=== PATIENT | female | born 1950 | race Caucasian/White ===

== ENCOUNTER 2019-06-21 16:17 | Inpatient (IN) ==
[2019-06-21] MEDS ORDERED: dilTIAZem HCl 5 MG/ML 5 ML VIAL IV STA (17:00)
[2019-06-21] MEDS: dilTIAZem HCL 125 MG in DEXTROSE 5% 100 ML IV SCH (17:11)
--- NOTE | 2019-06-21 17:11 | XRay Report ---
XR chest 1V portable CLINICAL HISTORY: weakness dyspnea COMPARISON STUDY: No previous studies for comparison. FINDINGS: Moderate cardiomegaly. Prior median sternotomy and valve replacement. Components of congest josy heart failure. Small right effusion. IMPRESSION: Congestive heart failure ACT 112: Negative or not required by law. The above report was generated using voice recognition software. It may contain grammatical, syntax or spelling errors. Electronically signed by: Jemal Rojas M.D. 06/21/2019 5:10 PM
[2019-06-21 17:18] LABS: Basophils # (auto) 0.03 K/uL (0-0.2); Basophils % (auto) 0.2 %; Eosinophils # (auto) 0.09 K/uL (0-0.5); Eosinophils % (auto) 0.6 %; Hematocrit (blood only) 42.6 % (37-47); Hemoglobin 13.2 g/dL (12.0-16.0); Immature Granulocytes # (auto) 0.03 K/uL (0.00-0.02); Immature Granulocytes % (auto) 0.2 %; Lymphocytes # (auto) 2.29 K/uL (1.2-3.4); Lymphocytes % (auto) 15.8 %; Mean Corpuscular Hemoglobin 28.2 pg (25-34); Mean Platelet Volume 11.7 fL (7.4-10.4); Monocytes # (auto) 1.16 K/uL (0.11-0.59); Neutrophils # (auto) 10.87 K/uL (1.4-6.5); Neutrophils % (auto) 75.2 %; Platelet Count 354 K/uL (130-400); RDW Coefficient of Variation 15.5 % (11.5-14.5); RDW Standard Deviation 51.2 fL (36.4-46.3); Red Blood Count 4.68 M/uL (4.2-5.4); White Blood Count 14.47 K/uL (4.8-10.8)
[2019-06-21 17:28] LABS: Partial Thromboplastin Time 28.3 Seconds (21.0-31.0); Prothrombin Time 19.8 Seconds (9.0-12.0)
--- NOTE | 2019-06-21 17:39 | History & Physical Report ---
Date of Service June 21, 2019 Assessment & Plan (1) Atrial fibrillation with RVR: Atrial Fibrillation RVR: History of paroxysmal atrial fibrillation H/O Mechanical MVR CXR:Congestive heart failure TSH:2.5 Monitor electrolytes and replete as needed Increase metoprolol to 75 mg BID Continue Cardizem drip Also on Digoxin Continue Coumadin Monitor INR:2.0 Cardiology consulted Trend Cardiac enzymes Acute on chronic systolic and diastolic heart failure CXR:Congestive heart failure Hold PO diuretics Received IV Lasix 40 mg while in ED Start IV Lasix 20mg BID Update ECHO Daily weight, I/Os, fluid restriction Oxygen support PRN Monitor renal function/electrolytes Cardiology consulted Hypertensive Urgency H/O Hypertensive heart disease Continue metoprolol, lisinopril Also on digoxin Adjust medications as needed Leukocytosis No obvious Source of infection Hold Antibiotics for now Monitor Ongoing tobacco use disorder Counseled to quit smoking Refused nicotine patch CONSTANCE Depression Continue home medication Dyslipidemia on Statin H/O metallic mitral valve replacement Continue Coumadin INR 2.0 COPD No signs of exacerbation Continue home inhalers Duo nebs as needed DVT Px: on Heparin drip Code Status Full Code Disposition Admit in Tele History of Present Illness Chief Complaint: Shortness of Breath Primary Care Provider: Rosey Power MD Patient is a 69-year-old female with history of paroxysmal atrial fibrillation on chronic anticoagulation with Coumadin, ongoing tobacco use disorder, CONSTANCE, dyslipidemia, H/O metallic mitral valve replacement, depression, COPD, hypertensive heart disease, CHF and other problems presents with history of worsening shortness of breath, weight gain, bilateral lower extremity edema, and orthopnea. Patient states having worsening shortness of breath since last few weeks which is gradually progressed especially since last 2 days. Patient has been having difficulty sleeping secondary to severe orthopnea. She states having nausea, vomiting since 2 days and did not take her home medications. She was evaluated in cardiology clinic today and EKG suggestive of A. fib RVR with heart rate in 170s. Patient was sent to ED for further evaluation and management. She denies any history of chest pain, palpitations, abdominal pain, diarrhea, wheezing, cough. She gained about 5 to 8 pounds from baseline and noticed right lower extremity swelling greater than left lower extremity. She started on IV Cardizem drip while in ED. Also denies any history of dizziness, diaphoresis, hemoptysis, fever, chills, fall, headache, change in vision, dysuria, hematuria, sick contact, recent change in medications. Allergies Allergy/AdvReac Type Severity Reaction Status Date / Time bupropion Allergy Mild . Verified 06/21/19 18:13 tromethamine Allergy Unknown . Verified 06/21/19 18:13 ketorolac AdvReac Severe CHF Verified 06/21/19 18:13 Home Medications Home Medications Medication Instructions Recorded Confirmed Type albuterol sulfate 2 puff INHALATION Q4 PRN 06/21/19 06/21/19 History amoxicillin 2,000 mg PO UD 06/21/19 06/21/19 History aspirin 81 mg PO DAILY 06/21/19 06/21/19 History atorvastatin 40 mg PO DAILY 06/21/19 06/21/19 History cyanocobalamin (vitamin B-12) 500 mcg PO DAILY 06/21/19 06/21/19 History [Vitamin B-12] digoxin 125 mcg PO HS 06/21/19 06/21/19 History [id number]-[id number] 1 inh INHALATION DAILY 06/21/19 06/21/19 History [Trelegy Ellipta] furosemide 40 mg PO BID 06/21/19 06/21/19 History ipratropium-albuterol 3 ml INHALATION Q6H PRN 06/21/19 06/21/19 History lisinopril 5 mg PO DAILY 06/21/19 06/21/19 History metoprolol succinate 50 mg PO BID 06/21/19 06/21/19 History sertraline 25 mg PO DAILY 06/21/19 06/21/19 History warfarin 2.5 mg PO Q7D 06/21/19 06/21/19 History warfarin 5 mg PO [id number] 06/21/19 06/21/19 History Past Med/Surg History Medical History A-fib CHF (congestive heart failure) (Acute) CONSTANCE (generalized anxiety disorder) Surgical History H/O mitral valve replacement Family History Father Heart disease Brother Heart disease Social History Feels Safe at Home: Yes Smoking Status: Current every day smoker Review of Systems Review of Systems: All systems reviewed & are unremarkable except as noted in HPI & below Physical Exam Physical Exam: Physical Exam: Vitals signs as noted above General Appearance:Moderately built and nourished, no apparent distress Head: normocephalic, Atraumatic Eyes: normal inspection, EOMI Neck: supple, Trachea midline Respiratory/Chest: Normal breath sounds, + Basal Rales, No accessory muscle use Cardiovascular: Irregularly irregular, tachycardia, + murmur Abdomen/GI:Soft, Non tender, Bowel sounds present Extremities/Musculoskelatal:normal inspection, B/L LE edema Neurologic/Psych:AAOX3, grossly no focal neurological deficits Skin: normal color, warm Results & Data Vital Signs (Past 12 Hours) Vital Signs Temp Pulse Pulse Resp BP BP Pulse Ox 06/21/19 17:26 145 H 43 H 103/85 97 06/21/19 17:22 139 H 34 H 97 06/21/19 17:21 147 H 28 H 144/110 H 97 06/21/19 17:20 144 H 31 H 97 06/21/19 17:18 151 H 21 164/112 H 96 06/21/19 17:14 143 H 31 H 156/116 H 97 06/21/19 17:13 128 H 32 H 156/116 H 97 06/21/19 17:12 141 H 25 H 142/88 H 96 06/21/19 17:10 130 H 24 94 06/21/19 17:07 185 H 26 H 94 06/21/19 17:06 169 H 26 H 94 06/21/19 16:44 36.7 C 171 H 30 H 157/123 H 94 Laboratory Results Short CBC 06/21/19 Range/Units 16:57 WBC 14.47 H (4.8-10.8) K/uL Hgb 13.2 (12.0-16.0) g/dL Hct 42.6 (37-47) % Plt Count 354 (130-400) K/uL BMP 06/21/19 16:57 Sodium 139 Potassium 3.6 Chloride 105 Carbon Dioxide 29 BUN 15 Creatinine 1.09 Glucose 138 H Calcium 8.7 Cardiac Enzymes 06/21/19 Range/Units 16:57 Troponin I 0.021 (0-0.045) ng/ml Liver Function 06/21/19 Range/Units 16:57 Total Bilirubin 1.1 H (0.2-1) mg/dl AST 40 H (15-37) U/L ALT 66 (12-78) U/L Alkaline Phosphatase 147 H (45-117) U/L Albumin 3.3 L (3.4-5.0) gm/dl Urine 06/21/19 Range/Units 18:30 Urine Color Yellow Urine Appearance Clear (Clear) Urine pH 6.0 (4.5-7.5) Ur Specific [place] 1.011 (1.000-1.030) Urine Protein 2+ H (Negative) Urine Glucose (UA) Negative (Negative) Diagnostic Findings CXR: Congestive heart failure Medications Administered Home Medications Medication Instructions Recorded Confirmed albuterol sulfate 2 puff INHALATION Q4 PRN 06/21/19 06/21/19 amoxicillin 2,000 mg PO UD 06/21/19 06/21/19 aspirin 81 mg PO DAILY 06/21/19 06/21/19 atorvastatin 40 mg PO DAILY 06/21/19 06/21/19 cyanocobalamin (vitamin B-12) 500 mcg PO DAILY 06/21/19 06/21/19 [Vitamin B-12] digoxin 125 mcg PO HS 06/21/19 06/21/19 [id number] 1 inh INHALATION DAILY 06/21/19 06/21/19 [Trelegy Ellipta] furosemide 40 mg PO BID 06/21/19 06/21/19 ipratropium-albuterol 3 ml INHALATION Q6H PRN 06/21/19 06/21/19 lisinopril 5 mg PO DAILY 06/21/19 06/21/19 metoprolol succinate 50 mg PO BID 06/21/19 06/21/19 sertraline 25 mg PO DAILY 06/21/19 06/21/19 warfarin 2.5 mg PO Q7D 06/21/19 06/21/19 warfarin 5 mg PO [id number] 06/21/19 06/21/19
[2019-06-21 17:41] LABS: Alanine Aminotransferase 66 U/L (12-78); Albumin Level 3.3 gm/dl (3.4-5.0); Aspartate Aminotransferase 40 U/L (15-37); BUN Creatinine Ratio 13.8 (10-20); Blood Urea Nitrogen 15 mg/dl (7-18); Calcium 8.7 mg/dl (8.5-10.1); Carbon Dioxide 29 mmol/L (21-32); Chloride 105 mmol/L (98-107); Est GFR (African American) 60.4; Est GFR (Non-African American) 52.1; Glucose 138 mg/dl (70-99); Potassium 3.6 mmol/L (3.5-5.1); Sodium 139 mmol/L (136-145)
[2019-06-21 17:52] LABS: Albumin Globulin Ratio 0.9 (0.9-2); Alkaline Phosphatase 147 U/L (45-117); Bilirubin,Total 1.1 mg/dl (0.2-1); Globulin 3.7 gm/dl (2.5-4.0); Troponin I 0.021 ng/ml (0-0.045)
[2019-06-21] MEDS ORDERED: FUROSEMIDE 40 MG/4 ML VIAL IV STA (18:02)
[2019-06-21] MEDS ORDERED: Heparin IV Standard *NO* Bolus IV ONE (18:36)
[2019-06-21 18:43] LABS: Appearance Urine Clear (Clear); Bacteria Urine Automated Negative (Negative); Bilirubin Urine Negative (Negative); Blood Urine Negative (Negative); Color Urine Yellow; Epithelial Cell Urine Auto 20-30 /lpf (0-5); Glucose Urine UA Negative (Negative); Ketones Urine Negative (Negative); Leukocyte Esterase Urine Negative (Negative); Nitrite Urine Negative (Negative); Protein Urine 2+ (Negative); RBC Urine Automated 0-4 /hpf (0-4); Specific Gravity Urine 1.011 (1.000-1.030); Urobilinogen Urine Negative (Negative)
[2019-06-21] MEDS ORDERED: POTASSIUM CHLORIDE 10 MEQ TABCR PO STA (18:44)
[2019-06-21] MEDS ORDERED: HEPARIN SODIUM/DEXTROSE 25,000 UNITS/500 ML BAG IV SCH (18:45)
[2019-06-21] MEDS ORDERED: HEPARIN 25000 UNIT/500 ML D5W IV ONE (18:57)
[2019-06-21] MEDS ORDERED: ACETAMINOPHEN 325 MG TAB PO PRN (21:59)
[2019-06-21] MEDS ORDERED: NITROGLYCERIN SL 0.4 MG/TAB TAB SL PRN (21:59)
[2019-06-21] MEDS ORDERED: POLYETHYLENE (MIRALAX) 17 GM PACK PO PRN (21:59)
[2019-06-21] MEDS ORDERED: ONDANSETRON INJ 2 MG/ML 2 ML VIAL IV PRN (21:59)
[2019-06-21] MEDS ORDERED: LEVALBUTEROL HCL 0.63 MG/3 ML NEB NEB PRN (22:18)
[2019-06-21] MEDS ORDERED: ALBUTEROL 0.5% NEB SOLN 2.5 MG/0.5 ML VIAL NEB PRN (22:19)
--- NOTE | 2019-06-21 22:21 | Emergency Department Note ---
Entered by Mile Turcios acting as a scribe for Isaac Guzman DO History of Present Illness General Chief complaint: Arrhythmia/Palpitations Stated complaint: AFIB Time Seen by Provider: 06/21/19 16:46 Source: patient Limitations: no limitations History of Present Illness Onset (ago): week(s) (a few) Location: chest Pain Consistency: + constant and + other (worsening ) Quality: + constant and + other (SOB) Associated symptoms: no chest pain and no cough The patient is a 69 year old female who presents to the Emergency Room with complaints of constant SOB that began a few weeks ago. She reports that the shortness of breath has worsened over the past 3 days. The patient reports that she was at Dr. Steinberg's office [employer], and she was referred here by Dr. Steinberg. She complains of nausea/vomiting over the past five days, noting that she has been vomiting up her medications. The patient complains of swelling in the lower extremities that began about the same time as the shortness of breath. She denies any chest pain, cough, and fevers. The patient reports that she has a history of A-fib, noting that she takes Coumadin. Home Medications Home Medications Medication Instructions Recorded Confirmed Type albuterol sulfate 2 puff INHALATION Q4 PRN 06/21/19 06/21/19 History amoxicillin 2,000 mg PO UD 06/21/19 06/21/19 History aspirin 81 mg PO DAILY 06/21/19 06/21/19 History atorvastatin 40 mg PO DAILY 06/21/19 06/21/19 History cyanocobalamin (vitamin B-12) 500 mcg PO DAILY 06/21/19 06/21/19 History [Vitamin B-12] digoxin 125 mcg PO HS 06/21/19 06/21/19 History xxhzaagzkws-mistkczzq-ybsqqlpa 1 inh INHALATION DAILY 06/21/19 06/21/19 History [Trelegy Ellipta] furosemide 40 mg PO BID 06/21/19 06/21/19 History ipratropium-albuterol 3 ml INHALATION Q6H PRN 06/21/19 06/21/19 History lisinopril 5 mg PO DAILY 06/21/19 06/21/19 History metoprolol succinate 50 mg PO BID 06/21/19 06/21/19 History sertraline 25 mg PO DAILY 06/21/19 06/21/19 History warfarin 2.5 mg PO WK 06/21/19 06/21/19 History warfarin 5 mg PO [id number] 06/21/19 06/21/19 History Allergies Allergy/AdvReac Type Severity Reaction Status Date / Time bupropion Allergy Mild . Verified 06/21/19 18:13 tromethamine Allergy Unknown . Verified 06/21/19 18:13 ketorolac AdvReac Severe CHF Verified 06/21/19 18:13 Past Med/Surg History Medical History A-fib CHF (congestive heart failure) (Acute) CONSTANCE (generalized anxiety disorder) Surgical History H/O mitral valve replacement Family History Father Heart disease Brother Heart disease Social History Preferred Language: Algerian Communication Ability: Effective Beliefs That Will Affect Care: None Current Living Situation: Alone Other Information That Helps Us Care for You: No Feels Safe at Home: Yes Safety Concerns: Feels Safe At This Time Smoking Status: Former smoker Hx Alcohol Use: No Hx Substance Use: No Review of Systems See HPI for pertinent positives & negatives. and A total of 10 systems reviewed and were otherwise negative Physical Exam Vital Signs Vital Signs - 24 hr 06/21/19 16:44 06/21/19 17:06 06/21/19 17:07 Temperature 36.7 C Temperature Source Oral Pulse Rate 171 H 169 H 185 H Pulse Rate [Left] Pulse Rate from SpO2 Sensor 145 H Respiratory Rate 30 H 26 H 26 H Respiratory Effort / Characteristics Blood Pressure 157/123 H Blood Pressure [Right Arm] Blood Pressure Mean 134 Blood Pressure Mean [Right Arm] Blood Pressure Position Sitting Blood Pressure Position [Right Arm] Pulse Oximetry 94 94 94 Oxygen Delivery Method Room Air Room Air Oxygen Flow Rate Sepsis Recent Fever Within 48 Hours No Sepsis New/Unexplained Change in Mental Status No Sepsis Action Taken by Nursing No Action Required 06/21/19 17:10 06/21/19 17:12 06/21/19 17:13 Temperature Temperature Source Pulse Rate 130 H 141 H 128 H Pulse Rate [Left] Pulse Rate from SpO2 Sensor 124 H 152 H 130 H Respiratory Rate 24 25 H 32 H Respiratory Effort / Characteristics Blood Pressure 142/88 H 156/116 H Blood Pressure [Right Arm] Blood Pressure Mean 97 123 Blood Pressure Mean [Right Arm] Blood Pressure Position Blood Pressure Position [Right Arm] Pulse Oximetry 94 96 97 Oxygen Delivery Method Oxygen Flow Rate Sepsis Recent Fever Within 48 Hours Sepsis New/Unexplained Change in Mental Status Sepsis Action Taken by Nursing 06/21/19 17:14 06/21/19 17:18 06/21/19 17:20 Temperature Temperature Source Pulse Rate 151 H 144 H Pulse Rate [Left] 143 H Pulse Rate from SpO2 Sensor 135 H 130 H Respiratory Rate 31 H 21 31 H Respiratory Effort / Characteristics Spontaneous Blood Pressure 164/112 H Blood Pressure [Right Arm] 156/116 H Blood Pressure Mean 122 Blood Pressure Mean [Right Arm] 129 Blood Pressure Position Blood Pressure Position [Right Arm] Lying Pulse Oximetry 97 96 97 Oxygen Delivery Method Nasal Cannula Oxygen Flow Rate 2 Sepsis Recent Fever Within 48 Hours Sepsis New/Unexplained Change in Mental Status Sepsis Action Taken by Nursing 06/21/19 17:21 06/21/19 17:22 06/21/19 17:26 Temperature Temperature Source Pulse Rate 147 H 139 H 145 H Pulse Rate [Left] Pulse Rate from SpO2 Sensor 128 H 146 H 149 H Respiratory Rate 28 H 34 H 43 H Respiratory Effort / Characteristics Blood Pressure 144/110 H Blood Pressure [Right Arm] Blood Pressure Mean 115 Blood Pressure Mean [Right Arm] Blood Pressure Position Blood Pressure Position [Right Arm] Pulse Oximetry 97 97 97 Oxygen Delivery Method Oxygen Flow Rate Sepsis Recent Fever Within 48 Hours Sepsis New/Unexplained Change in Mental Status Sepsis Action Taken by Nursing 06/21/19 17:27 06/21/19 17:31 06/21/19 17:35 Temperature Temperature Source Pulse Rate 141 H 135 H 130 H Pulse Rate [Left] Pulse Rate from SpO2 Sensor 128 H 138 H 148 H Respiratory Rate 30 H 20 32 H Respiratory Effort / Characteristics Blood Pressure 161/108 H 173/117 H Blood Pressure [Right Arm] Blood Pressure Mean 119 126 Blood Pressure Mean [Right Arm] Blood Pressure Position Blood Pressure Position [Right Arm] Pulse Oximetry 98 98 98 Oxygen Delivery Method Oxygen Flow Rate Sepsis Recent Fever Within 48 Hours Sepsis New/Unexplained Change in Mental Status Sepsis Action Taken by Nursing 06/21/19 17:40 06/21/19 17:41 06/21/19 17:45 Temperature Temperature Source Pulse Rate 135 H 138 H 147 H Pulse Rate [Left] Pulse Rate from SpO2 Sensor 139 H 137 H 140 H Respiratory Rate 32 H 27 H 23 Respiratory Effort / Characteristics Blood Pressure 161/114 H 161/115 H Blood Pressure [Right Arm] Blood Pressure Mean 120 137 Blood Pressure Mean [Right Arm] Blood Pressure Position Blood Pressure Position [Right Arm] Pulse Oximetry 98 97 97 Oxygen Delivery Method Oxygen Flow Rate Sepsis Recent Fever Within 48 Hours Sepsis New/Unexplained Change in Mental Status Sepsis Action Taken by Nursing 06/21/19 17:50 06/21/19 17:56 06/21/19 18:00 Temperature Temperature Source Pulse Rate 149 H 129 H 141 H Pulse Rate [Left] Pulse Rate from SpO2 Sensor 141 H 131 H 144 H Respiratory Rate 31 H 20 26 H Respiratory Effort / Characteristics Blood Pressure 140/117 H 151/129 H 162/111 H Blood Pressure [Right Arm] Blood Pressure Mean 125 135 137 Blood Pressure Mean [Right Arm] Blood Pressure Position Blood Pressure Position [Right Arm] Pulse Oximetry 97 97 96 Oxygen Delivery Method Oxygen Flow Rate Sepsis Recent Fever Within 48 Hours Sepsis New/Unexplained Change in Mental Status Sepsis Action Taken by Nursing 06/21/19 18:01 06/21/19 18:05 06/21/19 18:10 Temperature Temperature Source Pulse Rate 140 H 127 H 141 H Pulse Rate [Left] Pulse Rate from SpO2 Sensor 131 H 138 H 151 H Respiratory Rate 24 22 22 Respiratory Effort / Characteristics Blood Pressure 178/120 H 170/129 H Blood Pressure [Right Arm] Blood Pressure Mean 129 137 Blood Pressure Mean [Right Arm] Blood Pressure Position Blood Pressure Position [Right Arm] Pulse Oximetry 97 96 97 Oxygen Delivery Method Oxygen Flow Rate Sepsis Recent Fever Within 48 Hours Sepsis New/Unexplained Change in Mental Status Sepsis Action Taken by Nursing 06/21/19 18:11 06/21/19 18:15 06/21/19 18:20 Temperature Temperature Source Pulse Rate 129 H 132 H 135 H Pulse Rate [Left] Pulse Rate from SpO2 Sensor 135 H 142 H 123 H Respiratory Rate 25 H 36 H 25 H Respiratory Effort / Characteristics Blood Pressure 156/105 H 148/100 H Blood Pressure [Right Arm] Blood Pressure Mean 122 115 Blood Pressure Mean [Right Arm] Blood Pressure Position Blood Pressure Position [Right Arm] Pulse Oximetry 94 97 97 Oxygen Delivery Method Oxygen Flow Rate Sepsis Recent Fever Within 48 Hours Sepsis New/Unexplained Change in Mental Status Sepsis Action Taken by Nursing 06/21/19 18:26 06/21/19 18:31 06/21/19 18:32 Temperature Temperature Source Pulse Rate 147 H 167 H 150 H Pulse Rate [Left] Pulse Rate from SpO2 Sensor 147 H 144 H Respiratory Rate 31 H 36 H 20 Respiratory Effort / Characteristics Blood Pressure 152/129 H 176/111 H Blood Pressure [Right Arm] Blood Pressure Mean 137 134 Blood Pressure Mean [Right Arm] Blood Pressure Position Blood Pressure Position [Right Arm] Pulse Oximetry 97 97 Oxygen Delivery Method Oxygen Flow Rate Sepsis Recent Fever Within 48 Hours Sepsis New/Unexplained Change in Mental Status Sepsis Action Taken by Nursing 06/21/19 18:33 06/21/19 18:35 06/21/19 18:40 Temperature Temperature Source Pulse Rate 152 H 136 H 153 H Pulse Rate [Left] Pulse Rate from SpO2 Sensor 143 H 135 H 147 H Respiratory Rate 41 H 24 33 H Respiratory Effort / Characteristics Blood Pressure 165/105 H 159/118 H Blood Pressure [Right Arm] Blood Pressure Mean 110 131 Blood Pressure Mean [Right Arm] Blood Pressure Position Blood Pressure Position [Right Arm] Pulse Oximetry 97 97 96 Oxygen Delivery Method Oxygen Flow Rate Sepsis Recent Fever Within 48 Hours Sepsis New/Unexplained Change in Mental Status Sepsis Action Taken by Nursing GENERAL: Patient is awake, alert, and in no acute distress.Patient is resting comfortably and showing no signs of anxiety EYES: The conjunctivae are clear. The pupils are round and reactive. EARS, NOSE, MOUTH AND THROAT: The nose is without any evidence of any deformity. Mucous membranes are moist.Tongue is midline NECK: The neck is nontender and supple. RESPIRATORY: Normal respiratory effort is noted. There is no evidence of wheezing rhonchi or rales to auscultation. CARDIOVASCULAR: Tachycardic rate noted to auscultation. No definite murmur, metallic click noted to auscultation. GASTROINTESTINAL: Mildly distended, soft, no tenderness throughout. MUSCULOSKELETAL/EXTREMITIES: There is no evidence of gross deformity. Full range of motion is noted in the hips and shoulders. SKIN: There is no obvious evidence of any rash. There are no petechiae, pallor or cyanosis noted. Pedal edema bilaterally. Skin is warm and dry. NEUROLOGIC: Patient is awake alert and oriented x3. Course Course 1648: The patient was evaluated in room A01. A complete history and physical exam was performed. 1728: Carlos was paged. 1736: I spoke with Dr. Man, [facility] hospitalist, about the patient's case. He will further evaluate the patient. Administered Medications Diltiazem HCl 125 mg/ Dextrose 125 mls @ 5 mls/hr IV .Q24H LESLIE; Protocol Stop: 07/21/19 16:59 Last Titration: 06/21/19 17:41 Dose: 15 mg/hr, 15 mls/hr Documented by: [id number] Cosigned by: [id number] Titration: 06/21/19 17:21 Dose: 10 mg/hr, 10 mls/hr Documented by: [id number] Cosigned by: [id number] Admin: 06/21/19 17:11 Dose: 5 mg/hr, 5 mls/hr Documented by: [id number] Cosigned by: [id number] Discontinued Medications Diltiazem HCl (Cardizem) 10 mg IV NOW STA Stop: 06/21/19 17:01 Last Admin: 06/21/19 17:07 Dose: 10 mg Documented by: [id number] Cosigned by: [id number] Furosemide (Lasix) 40 mg IV NOW STA Stop: 06/21/19 18:03 Last Admin: 06/21/19 18:13 Dose: 40 mg Documented by: [id number] Heparin Sodium/Dextrose (Heparin Sodium/Dextrose) Confirm Administered Dose 25,000 units IV .STK-MED ONE Stop: 06/21/19 18:58 Last Admin: 06/21/19 19:03 Dose: 25 ml Documented by: [id number] Cosigned by: [id number] Potassium Chloride (Klor-Con M10) 40 meq PO NOW STA Stop: 06/21/19 18:45 Last Admin: 06/21/19 19:14 Dose: 40 meq Documented by: [id number] Medical Decision Making Differential Diagnosis Differential diagnosis includes etiologies such as premature contractions, electrolyte abnormality, cardiac dysrhythmia, thyroid dysfunction, pulmonary embolism, infection, gastrointestinal, as well as others were entertained. Medical Records Attestation: I reviewed the patient's medical records. Home Medications Current Medication List: was personally reviewed by me Laboratory Data Attestation: I reviewed the patient's lab results. Result diagrams: 06/21/19 16:57 06/21/19 16:57 Lab Results 06/21/19 06/21/19 06/21/19 Range/Units 16:57 16:57 16:57 WBC 14.47 H (4.8-10.8) K/uL RBC 4.68 (4.2-5.4) M/uL Hgb 13.2 (12.0-16.0) g/dL Hct 42.6 (37-47) % MCV 91.0 (80-100) fL MCH 28.2 (25-34) pg MCHC 31.0 L (32-36) g/dL RDW Std Deviation 51.2 H (36.4-46.3) fL RDW Coeff of Becca 15.5 H (11.5-14.5) % Plt Count 354 (130-400) K/uL MPV 11.7 H (7.4-10.4) fL Immature Gran % (Auto) 0.2 % Neut % (Auto) 75.2 % Lymph % (Auto) 15.8 % [place] % (Auto) 8.0 % Eos % (Auto) 0.6 % Baso % (Auto) 0.2 % Immature Gran # (Auto) 0.03 H (0.00-0.02) K/uL Neut # (Auto) 10.87 H (1.4-6.5) K/uL Lymph # (Auto) 2.29 (1.2-3.4) K/uL [place] # (Auto) 1.16 H (0.11-0.59) K/uL Eos # (Auto) 0.09 (0-0.5) K/uL Baso # (Auto) 0.03 (0-0.2) K/uL PT 19.8 H (9.0-12.0) Seconds INR 2.0 H (0.9-1.1) APTT 28.3 (21.0-31.0) Seconds PTT Ratio 1.0 Sodium 139 (136-145) mmol/L Potassium 3.6 (3.5-5.1) mmol/L Chloride 105 (98-107) mmol/L Carbon Dioxide 29 (21-32) mmol/L Anion Gap 5.0 (3-11) BUN 15 (7-18) mg/dl Creatinine 1.09 (0.6-1.2) mg/dl Est Cr Clr Drug Dosing Not Reportable Est GFR ( Amer) 60.4 Est GFR (Non-Af Amer) 52.1 BUN/Creatinine Ratio 13.8 (10-20) Glucose 138 H (70-99) mg/dl Calcium 8.7 (8.5-10.1) mg/dl Magnesium 2.0 (1.8-2.4) mg/dl Total Bilirubin 1.1 H (0.2-1) mg/dl AST 40 H (15-37) U/L ALT 66 (12-78) U/L Alkaline Phosphatase 147 H (45-117) U/L Troponin I 0.021 (0-0.045) ng/ml Total Protein 7.0 (6.4-8.2) gm/dl Albumin 3.3 L (3.4-5.0) gm/dl Globulin 3.7 (2.5-4.0) gm/dl Albumin/Globulin Ratio 0.9 (0.9-2) TSH 2.540 (0.300-4.500) uIu/ml Urine Color Urine Appearance (Clear) Urine pH (4.5-7.5) Ur Specific [place] (1.000-1.030) Urine Protein (Negative) Urine Glucose (UA) (Negative) Urine Ketones (Negative) Urine Blood (Negative) Urine Nitrite (Negative) Urine Bilirubin (Negative) Urine Urobilinogen (Negative) Ur Leukocyte Esterase (Negative) Urine WBC (Auto) (0-5) /hpf Urine RBC (Auto) (0-4) /hpf U Hyaline Cast (Auto) (0-5) /lpf U Epithel Cells (Auto) (0-5) /lpf Urine Bacteria (Auto) (Negative) Digoxin (0.8-2.0) ng/ml 06/21/19 06/21/19 Range/Units 16:57 18:30 WBC (4.8-10.8) K/uL RBC (4.2-5.4) M/uL Hgb (12.0-16.0) g/dL Hct (37-47) % MCV (80-100) fL MCH (25-34) pg MCHC (32-36) g/dL RDW Std Deviation (36.4-46.3) fL RDW Coeff of Becca (11.5-14.5) % Plt Count (130-400) K/uL MPV (7.4-10.4) fL Immature Gran % (Auto) % Neut % (Auto) % Lymph % (Auto) % [place] % (Auto) % Eos % (Auto) % Baso % (Auto) % Immature Gran # (Auto) (0.00-0.02) K/uL Neut # (Auto) (1.4-6.5) K/uL Lymph # (Auto) (1.2-3.4) K/uL [place] # (Auto) (0.11-0.59) K/uL Eos # (Auto) (0-0.5) K/uL Baso # (Auto) (0-0.2) K/uL PT (9.0-12.0) Seconds INR (0.9-1.1) APTT (21.0-31.0) Seconds PTT Ratio Sodium (136-145) mmol/L Potassium (3.5-5.1) mmol/L Chloride (98-107) mmol/L Carbon Dioxide (21-32) mmol/L Anion Gap (3-11) BUN (7-18) mg/dl Creatinine (0.6-1.2) mg/dl Est Cr Clr Drug Dosing Est GFR ( Amer) Est GFR (Non-Af Amer) BUN/Creatinine Ratio (10-20) Glucose (70-99) mg/dl Calcium (8.5-10.1) mg/dl Magnesium (1.8-2.4) mg/dl Total Bilirubin (0.2-1) mg/dl AST (15-37) U/L ALT (12-78) U/L Alkaline Phosphatase (45-117) U/L Troponin I (0-0.045) ng/ml Total Protein (6.4-8.2) gm/dl Albumin (3.4-5.0) gm/dl Globulin (2.5-4.0) gm/dl Albumin/Globulin Ratio (0.9-2) TSH (0.300-4.500) uIu/ml Urine Color Yellow Urine Appearance Clear (Clear) Urine pH 6.0 (4.5-7.5) Ur Specific [place] 1.011 (1.000-1.030) Urine Protein 2+ H (Negative) Urine Glucose (UA) Negative (Negative) Urine Ketones Negative (Negative) Urine Blood Negative (Negative) Urine Nitrite Negative (Negative) Urine Bilirubin Negative (Negative) Urine Urobilinogen Negative (Negative) Ur Leukocyte Esterase Negative (Negative) Urine WBC (Auto) 1-5 (0-5) /hpf Urine RBC (Auto) 0-4 (0-4) /hpf U Hyaline Cast (Auto) 1-5 (0-5) /lpf U Epithel Cells (Auto) 20-30 H (0-5) /lpf Urine Bacteria (Auto) Negative (Negative) Digoxin 0.1 L (0.8-2.0) ng/ml Imaging Data Radiologist's Impression: Radiology results as stated below per my review and the radiologist's interpretation: XR chest 1V portable CLINICAL HISTORY: weakness dyspnea COMPARISON STUDY: No previous studies for comparison. FINDINGS: Moderate cardiomegaly. Prior median sternotomy and valve replacement. Components of congestive heart failure. Small right effusion. IMPRESSION: Congestive heart failure ACT 112: Negative or not required by law. The above report was generated using voice recognition software. It may contain grammatical, syntax or spelling errors. Electronically signed by: Jemal Rojas M.D. 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 The patient was found to be in rapid atrial fibrillation. It sounds though she has been having symptoms for a few days. She also has a history and physical exam appear to be consistent with volume overload and CHF. Chest x-ray revealed signs of pulmonary edema. She was sarah ated with supplemental oxygen IV Lasix. I did feel that many of her symptoms were likely secondary to her rapid ventricular response so she was treated with IV Cardizem. She was placed on a Cardizem drip. She was reevaluated multiple times. I discussed the patient's laboratory and radiographic studies with her. I also discussed her case with the on-call [facility] hospitalist group. They have agreed to evaluate the patient in the emergency department for further management and disposition. The patient's heart rate continued to improve. Her overall shortness of breath also improved. Impression & Plan Atrial fibrillation with RVR, CHF (congestive heart failure), SOB (shortness of breath) Discharge Plan Visit Data *Final* Discharge Date/Time: 06/21/19 21:28 Chief Complaint: Arrhythmia/Palpitations Stated Complaint: AFIB ED Provider: Isaac Guzman Discharge Problem: Atrial fibrillation with RVR, CHF (congestive heart failure), SOB (shortness of breath) Patient Disposition: Admitted As Inpatient Discharge Instructions Interventions: ED Discharge Assessment Last Done: 06/21/19 21:28 Discharge Problem: CHF (congestive heart failure) Qualifiers: Heart failure type: unspecified Heart failure chronicity: unspecified Qualified Code(s): I50.9 - Heart failure, unspecified The scribe's documentation has been prepared under my direction and personally reviewed by me in its entirety. I confirm that the note above accurately reflects all work, treatment, procedures, and medical decision making performed by me.
[2019-06-21] MEDS ORDERED: IPRATROPIUM BROMIDE NEB SOLN 0.02% 2.5 ML VIAL INH PRN (22:23)
[2019-06-21] MEDS: METOPROLOL TARTRATE 25 MG TAB PO SCH (22:40)
[2019-06-21] MEDS: lisinopriL 5 MG TAB PO SCH (22:40)
[2019-06-21] MEDS: DIGOXIN 0.125 MG TAB PO SCH (22:40)
[2019-06-22] MEDS: dilTIAZem HCL 125 MG in DEXTROSE 5% 100 ML IV SCH ×2 (02:23→09:18)
--- NOTE | 2019-06-22 06:40 | Ultrasound Report ---
BILATERAL LOWER EXTREMITY VENOUS DOPPLER CLINICAL HISTORY: Bilateral lower extremity swelling. COMPARISON STUDY: No previous studies for comparison. TECHNIQUE: Sonography of the deep venous system of the bilateral lower extremities was performed. Co mpression and augmentation were evaluated. FINDINGS: The bilateral common femoral, superficial femoral and popliteal veins were compressible. A ugmentation was normal. Flow was shown within the deep calf vessels. IMPRESSION: No evidence of deep venous thrombus within the bilateral lower extremities. ACT 112: Negative or not required by law. Electronically signed by: Ciro Marmolejo M.D. 06/22/2019 6:38 AM
[2019-06-22 07:16] LABS: Basophils # (auto) 0.02 K/uL (0-0.2); Basophils % (auto) 0.2 %; Eosinophils # (auto) 0.14 K/uL (0-0.5); Eosinophils % (auto) 1.1 %; Hematocrit (blood only) 39.7 % (37-47); Hemoglobin 12.1 g/dL (12.0-16.0); Immature Granulocytes # (auto) 0.04 K/uL (0.00-0.02); Immature Granulocytes % (auto) 0.3 %; Lymphocytes # (auto) 2.01 K/uL (1.2-3.4); Lymphocytes % (auto) 16.4 %; Mean Corpuscular Hemoglobin 28.1 pg (25-34); Mean Corpuscular Hgb Conc 30.5 g/dL (32-36); Mean Corpuscular Volume 92.1 fL (80-100); Mean Platelet Volume 11.3 fL (7.4-10.4); Monocytes % (auto) 9.8 %; Neutrophils # (auto) 8.85 K/uL (1.4-6.5); Neutrophils % (auto) 72.2 %; Platelet Count 305 K/uL (130-400); RDW Coefficient of Variation 15.3 % (11.5-14.5); RDW Standard Deviation 51.9 fL (36.4-46.3); Red Blood Count 4.31 M/uL (4.2-5.4); White Blood Count 12.26 K/uL (4.8-10.8)
[2019-06-22 07:24] LABS: INR 1.8 (0.9-1.1); Prothrombin Time 17.9 Seconds (9.0-12.0)
[2019-06-22 07:42] LABS: BUN Creatinine Ratio 15.6 (10-20); Calcium 8.9 mg/dl (8.5-10.1); Creatinine Clr Calc Pharmacy 52.3 ml/min; Est GFR (African American) 59.7; Est GFR (Non-African American) 51.5; Magnesium 1.9 mg/dl (1.8-2.4); Potassium 3.8 mmol/L (3.5-5.1)
[2019-06-22 07:45] LABS: Albumin Globulin Ratio 0.9 (0.9-2); Bilirubin,Total 1.1 mg/dl (0.2-1); Globulin 3.3 gm/dl (2.5-4.0); Total Protein 6.3 gm/dl (6.4-8.2)
[2019-06-22] MEDS ORDERED: PERFLUTREN LIPID MICROSPHERE (DEFINITY) IV ONE (08:37)
[2019-06-22] MEDS: METOPROLOL TARTRATE 25 MG TAB PO SCH (08:44)
[2019-06-22] MEDS: SERTRALINE HCL 50 MG TABLET PO SCH (08:45)
[2019-06-22] MEDS: lisinopriL 5 MG TAB PO SCH (08:45)
[2019-06-22] MEDS: ASPIRIN 81 MG ECTAB PO SCH (08:46)
[2019-06-22] MEDS ORDERED: FUROSEMIDE 20 MG in SYRINGE 0 ML IV SCH (09:00)
[2019-06-22] MEDS ORDERED: FUROSEMIDE 40 MG/4 ML VIAL IV SCH (09:00)
[2019-06-22] MEDS: ATORVASTATIN 40 MG TAB PO SCH (09:56)
--- NOTE | 2019-06-22 10:06 | Electrocardiogram Report ---
Test Reason : Blood Pressure : / mmHG Vent. Rate : 176 BPM Atrial Rate : 187 BPM P-R Int : 000 ms QRS Dur : 082 ms QT Int : 254 ms P-R-T Axes : 000 074 065 degrees QTc Int : 434 ms Atrial fibrillation with rapid ventricular response Nonspecific ST and T wave abnormality Abnormal ECG No previous ECGs available Confirmed by Isaac Paul ([id number]) on 06/22/2019 10:05:31 AM Referred By: REFERRED SELF Confirmed By:Isaac Paul
--- NOTE | 2019-06-22 10:14 | Electrocardiogram Report ---
Test Reason : Blood Pressure : / mmHG Vent. Rate : 082 BPM Atrial Rate : 000 BPM P-R Int : 000 ms QRS Dur : 090 ms QT Int : 456 ms P-R-T Axes : 000 006 229 degrees QTc Int : 532 ms Atrial fibrillation Minimal voltage criteria for LVH, may be normal variant ( Josemanuel product ) Nonspecific T wave abnormality Abnormal ECG When compared with ECG of 21-JUN-2019 16:43, (unconfirmed) Vent. rate has decreased BY 94 BPM Questionable change in QRS axis Nonspecific T wave abnormality now evident in Anterior leads Confirmed by Isaac Paul ([id number]) on 06/22/2019 10:13:48 AM Referred By: REFERRED SELF Confirmed By:Isaac Paul
[2019-06-22] MEDS: Heparin IV Standard *NO* Bolus IV SCH ×2 (10:18→15:27)
[2019-06-22] MEDS: HEPARIN SODIUM/DEXTROSE 25,000 UNITS/500 ML BAG IV SCH (10:28)
--- NOTE | 2019-06-22 12:15 | Hospitalist Progress Note ---
Date of Service June 22, 2019 Assessment & Plan (1) Atrial fibrillation with RVR: History of paroxysmal atrial fibrillation H/O Mechanical MVR TSH:2.5 Increase metoprolol to 75 mg BID Continue Cardizem drip Also on Digoxin Heart rate is controlled without any palpitation Cardiology consulted Acute on chronic systolic and diastolic heart failure CXR:Congestive heart failure Hold PO diuretics which was recently increased as an outpatient Received IV Lasix 40 mg while in ED Start IV Lasix 20mg BID She mentions that Lasix has not been working for her Update ECHO: A. fib with controlled ventricular response, normal LV systolic function and site, RV is normal size and function, LA is dilated, RA is normal, mechanical mitral valve noted without any mitral stenosis Daily weight, I/Os, fluid restriction Oxygen support PRN Cardiology consulted Hypertensive Urgency H/O Hypertensive heart disease Continue metoprolol, lisinopril Also on digoxin Blood pressure seems to be under control Leukocytosis No obvious Source of infection Hold Antibiotics for now Leukocytosis slightly improved at 12.26 on 06/22/2019 Ongoing tobacco use disorder Counseled to quit smoking Refused nicotine patch CONSTANCE Depression Continue home medication Dyslipidemia on Statin H/O metallic mitral valve replacement Continue Coumadin INR 2.0 INR is 1.8 as of today and intravenous heparin has been started Coumadin will be increased to 10 mg daily COPD No signs of exacerbation Continue home inhalers Duo nebs as needed DVT Px: on Heparin drip Code Status Full Code Disposition Admit in [facility] 06/22/2019 The patient was seen and examined in telemetry unit She still complains to have some shortness of breath on minimal exertion She has had more swelling of the legs and about 5 pounds weight gain noted on admission Atrial fibrillation seems to be stable She feels that her diuretic has not been working Review of Systems Review of Systems: All systems reviewed and are unremarkable except as noted below Respiratory: + dyspnea on exertion Cardiovascular: no chest pain and no palpitations Physical Exam Physical Exam: Sitting at the edge of the bed without any acute symptoms Constitutional: well developed, well nourished and + obese Eyes: PERRL, conjunctivae normal, anicteric sclerae ENMT: external ear and nose normal, oropharynx normal Neck: trachea midline, no thyromegaly Respiratory: + respiratory distress (Minimal shortness of breath at rest) Auscultation: + diminished lung sounds (Crackles at the right base) Cardiovascular: Rate/Rhythm: + abnormal rate and + abnormal rhythm Heart Sounds: + murmur Extremities: + edema (Bilateral leg edema about 1-2+) Gastrointestinal (Abdomen): Inspection/Auscultation: abdomen normal to inspection and normal bowel sounds Musculoskeletal: No acute arthritis involving any joints Results & Data Vital Signs (Past 12 Hours) Vital Signs Temp Pulse Pulse Resp BP Pulse Ox 06/22/19 07:34 36.7 C 81 19 118/56 L 96 06/22/19 07:27 71 06/22/19 03:45 36.8 C 86 18 123/72 97 06/22/19 01:03 36.7 C 86 18 144/70 H 97 Laboratory Results Short CBC 06/21/19 06/22/19 Range/Units 16:57 06:59 WBC 14.47 H 12.26 H (4.8-10.8) K/uL Hgb 13.2 12.1 (12.0-16.0) g/dL Hct 42.6 39.7 (37-47) % Plt Count 354 305 (130-400) K/uL BMP 06/21/19 06/22/19 16:57 06:59 Sodium 139 141 Potassium 3.6 3.8 Chloride 105 103 Carbon Dioxide 29 34 H BUN 15 17 Creatinine 1.09 1.10 Glucose 138 H 120 H Calcium 8.7 8.9 Cardiac Enzymes 06/21/19 06/21/19 Range/Units 16:57 23:07 Troponin I 0.021 0.025 (0-0.045) ng/ml Liver Function 06/21/19 06/22/19 Range/Units 16:57 06:59 Total Bilirubin 1.1 H 1.1 H (0.2-1) mg/dl AST 40 H 33 (15-37) U/L ALT 66 56 (12-78) U/L Alkaline Phosphatase 147 H 125 H (45-117) U/L Albumin 3.3 L 3.0 L (3.4-5.0) gm/dl Urine 06/21/19 Range/Units 18:30 Urine Color Yellow Urine Appearance Clear (Clear) Urine pH 6.0 (4.5-7.5) Ur Specific [place] 1.011 (1.000-1.030) Urine Protein 2+ H (Negative) Urine Glucose (UA) Negative (Negative) Medications Administered Current Inpatient Medications Acetaminophen (Tylenol) 650 mg PO Q4H PRN PRN Reason: Pain or Fever Stop: 07/21/19 21:58 Aspirin (Ecotrin Ectab) 81 mg PO DAILY [facility] Stop: 07/22/19 08:59 Last Admin: 06/22/19 08:46 Dose: 81 mg Documented by: Atorvastatin Calcium (Lipitor) 40 mg PO DAILY [facility] Stop: 07/22/19 08:59 Last Admin: 06/22/19 09:56 Dose: 40 mg Documented by: Digoxin (Lanoxin) 0.125 mg PO HS [facility] Stop: 07/21/19 21:58 Last Admin: 06/21/19 22:40 Dose: 0.125 mg Documented by: Fluticasone/Umeclidinium/Vilanterol (Trelegy Ellipta 100-62.5-25) 1 ea INH DAILY [facility] Stop: 07/23/19 08:59 Diltiazem HCl 125 mg/ Dextrose 125 mls @ 5 mls/hr IV .Q24H [facility]; Protocol Stop: 07/21/19 16:59 Last Admin: 06/22/19 09:18 Dose: 15 mg/hr, 15 mls/hr Documented by: Furosemide 20 mg/ Syringe 2 mls @ 4 mls/min IV [id number] [facility] Stop: 07/22/19 08:59 Last Admin: 06/22/19 08:43 Dose: 4 mls/min Documented by: Heparin Sodium/Dextrose (Heparin Sodium/Dextrose) 25,000 units in 500 mls @ 24 mls/hr IV .[id number] [facility]; Protocol Stop: 07/22/19 10:24 Last Admin: 06/22/19 10:28 Dose: 1,200 units/hr, 24 mls/hr Documented by: Ipratropium [place] (Atrovent 0.02% 0.5mg/2.5ml) 0.5 mg INH Q6R PRN PRN Reason: Shortness Of Breath Or Wheezing Stop: 07/21/19 22:22 Levalbuterol HCl (Xopenex 0.63 Mg/3 Ml Neb) 0.63 mg NEB Q6R PRN PRN Reason: Shortness Of Breath Or Wheezing Stop: 07/21/19 22:17 Lisinopril (Zestril) 5 mg PO DAILY [facility] Stop: 07/21/19 21:58 Last Admin: 06/22/19 08:45 Dose: 5 mg Documented by: Metoprolol Tartrate (Lopressor) 75 mg PO BID [facility] Stop: 07/21/19 21:58 Last Admin: 06/22/19 08:44 Dose: 75 mg Documented by: Nitroglycerin (Nitrostat) 0.4 mg SL UD PRN PRN Reason: Chest Pain Stop: 07/21/19 21:58 Ondansetron HCl (Zofran) 4 mg IV Q6H PRN PRN Reason: Nausea Stop: 07/21/19 21:58 Polyethylene Glycol (Miralax Powder Packet) 17 gm PO DAILY PRN PRN Reason: Constipation Stop: 07/21/19 21:58 Sertraline HCl (Zoloft) 25 mg PO DAILY [facility] Stop: 07/22/19 08:59 Last Admin: 06/22/19 08:45 Dose: 25 mg Documented by: Warfarin Sodium (Coumadin) 6 mg PO DAILY@1600 [facility] Stop: 07/22/19 15:59
[2019-06-22] MEDS ORDERED: POTASSIUM CHLORIDE 20 MEQ TABCR PO STA (13:23)
--- NOTE | 2019-06-22 13:30 | Cardiology Consultation ---
Date of Consultation June 22, 2019 Assessment & Plan (1) Acute on chronic diastolic heart failure: (2) Atrial fibrillation with RVR: Chest x-ray performed on presentation was suggestive of congestive heart failure. She is currently on high-dose IV diltiazem, and although she remains in atrial fibrillation, her rate is much better controlled. We will plan on weaning IV diltiazem, and increasing her metoprolol, will change to metoprolol tartrate 50 4 times daily for now. Echocardiogram performed today revealed low normal LVEF in the range of 50%, with normal prosthetic mitral valve function. INR 1.8 today, therefore a heparin bridge is been started. Her prior to hospital dose of Coumadin will be increased. She received 20 mg of IV furosemide this morning, she notes that she has not felt like she has urinated much after that, we will therefore administer another 20 mg, and plan for 40 mg tomorrow. Potassium has been supplemented. History of Present Illness Attending Physician: Tiana Crystal MD History of Present Illness Alicia Martinez is a 69-year-old female seen in cardiology consultation per the request of Dr. Man for the evaluation of atrial fibrillation with rapid ventricular response, lower extremity edema, shortness of breath. The patient had presented as an acute appointment at the cardiology clinic yesterday and had been seen by Deborah Anand PA-C of our practice. Upon presentation she was found to be in atrial fibrillation with rapid ventricular response with ventricular rates in excess of 160 bpm. At her prior visit with me in the fall 2018, she was in sinus rhythm. Past Medical History: Suspected underlying rheumatic valve disease, prompting mechanical mitral valve replacement Coronary heart disease, chronic circumflex territory stenosis, treated medically Cigarette smoking, with resultant lung disease Paroxysmal atrial fibrillation Chronic anticoagulation with Coumadin due to paroxysmal atrial fibrillation and mechanical mitral valve Allergies Allergy/AdvReac Type Severity Reaction Status Date / Time bupropion Allergy Mild . Verified 06/21/19 18:13 tromethamine Allergy Unknown . Verified 06/21/19 18:13 ketorolac AdvReac Severe CHF Verified 06/21/19 18:13 Home Medications Home Medications Medication Instructions Recorded Confirmed Type albuterol sulfate 2 puff INHALATION Q4 PRN 06/21/19 06/21/19 History amoxicillin 2,000 mg PO UD 06/21/19 06/21/19 History aspirin 81 mg PO DAILY 06/21/19 06/21/19 History atorvastatin 40 mg PO DAILY 06/21/19 06/21/19 History cyanocobalamin (vitamin B-12) 500 mcg PO DAILY 06/21/19 06/21/19 History [Vitamin B-12] digoxin 125 mcg PO HS 06/21/19 06/21/19 History otahthgtqmb-rxehhfsgc-fjumfhpm 1 inh INHALATION DAILY 06/21/19 06/21/19 History [Trelegy Ellipta] furosemide 40 mg PO BID 06/21/19 06/21/19 History ipratropium-albuterol 3 ml INHALATION Q6H PRN 06/21/19 06/21/19 History lisinopril 5 mg PO DAILY 06/21/19 06/21/19 History metoprolol succinate 50 mg PO BID 06/21/19 06/21/19 History sertraline 25 mg PO DAILY 06/21/19 06/21/19 History warfarin 2.5 mg PO WK 06/21/19 06/21/19 History warfarin 5 mg PO [id number] 06/21/19 06/21/19 History Patient History Medical History A-fib CHF (congestive heart failure) (Acute) CONSTANCE (generalized anxiety disorder) Surgical History H/O mitral valve replacement Family History Father Heart disease Brother Heart disease Social History Preferred Language: Turkish Communication Ability: Effective Beliefs That Will Affect Care: None Current Living Situation: Alone Other Information That Helps Us Care for You: No Feels Safe at Home: Yes Safety Concerns: Feels Safe At This Time Smoking Status: Former smoker Hx Alcohol Use: No Hx Substance Use: No Review of Systems Review of Systems: All systems reviewed & are unremarkable except as noted in HPI & below Physical Exam Physical Exam: Temp Pulse Resp BP Pulse Ox 36.5 C 79 19 116/49 L 95 06/22/19 11:56 06/22/19 11:56 06/22/19 11:56 06/22/19 11:56 06/22/19 11:56 Constitutional: Ill in appearance, no acute distress Respiratory: Mildly decreased breath sounds in the bases, no wheezing no rhonchi Gastrointestinal (Abdomen): normal bowel sounds, soft, nontender, no hepatosplenomegaly Skin: no rashes, warm and dry Neurologic: PERRL, EOMI, accommodation nl, no face palsy, no dysarthria Results & Data Vital Signs (Past 12 Hours) Vital Signs Temp Pulse Pulse Resp BP Pulse Ox 06/22/19 11:56 36.5 C 79 19 116/49 L 95 06/22/19 07:34 36.7 C 81 19 118/56 L 96 06/22/19 07:27 71 06/22/19 03:45 36.8 C 86 18 123/72 97
[2019-06-22] MEDS ORDERED: DIGOXIN 125 MCG in SYRINGE 9.5 ML IV ONE (13:45)
[2019-06-22] MEDS ORDERED: FUROSEMIDE 20 MG in SYRINGE 0 ML IV ONE (13:45)
[2019-06-22] MEDS: METOPROLOL TARTRATE 50 MG TAB PO SCH ×3 (14:13→20:23)
[2019-06-22] MEDS ORDERED: WARFARIN SOD 6 MG TAB PO SCH (16:00)
[2019-06-22] MEDS: WARFARIN SOD 10 MG TAB PO SCH (16:42)
[2019-06-22 17:41] LABS: Partial Thromboplastin Ratio 2.2
[2019-06-22 17:44] LABS: Partial Thromboplastin Time 60.6 Seconds (21.0-31.0)
[2019-06-22] MEDS: DIGOXIN 0.125 MG TAB PO SCH (20:23)
[2019-06-23] MEDS: HEPARIN SODIUM/DEXTROSE 25,000 UNITS/500 ML BAG IV SCH (07:07)
[2019-06-23 07:34] LABS: Basophils # (auto) 0.02 K/uL (0-0.2); Basophils % (auto) 0.2 %; Eosinophils # (auto) 0.23 K/uL (0-0.5); Eosinophils % (auto) 2.2 %; Hematocrit (blood only) 38.8 % (37-47); Hemoglobin 11.8 g/dL (12.0-16.0); Immature Granulocytes # (auto) 0.03 K/uL (0.00-0.02); Immature Granulocytes % (auto) 0.3 %; Lymphocytes % (auto) 21.8 %; Mean Corpuscular Hemoglobin 27.5 pg (25-34); Mean Corpuscular Hgb Conc 30.4 g/dL (32-36); Mean Corpuscular Volume 90.4 fL (80-100); Mean Platelet Volume 11.8 fL (7.4-10.4); Monocytes # (auto) 0.89 K/uL (0.11-0.59); Monocytes % (auto) 8.4 %; Neutrophils # (auto) 7.07 K/uL (1.4-6.5); Neutrophils % (auto) 67.1 %; Platelet Count 307 K/uL (130-400); RDW Coefficient of Variation 15.4 % (11.5-14.5); RDW Standard Deviation 50.7 fL (36.4-46.3); Red Blood Count 4.29 M/uL (4.2-5.4); White Blood Count 10.54 K/uL (4.8-10.8)
[2019-06-23 07:53] LABS: INR 2.1 (0.9-1.1); Partial Thromboplastin Ratio 3.9; Prothrombin Time 20.4 Seconds (9.0-12.0)
[2019-06-23 08:02] LABS: Partial Thromboplastin Time 104.9 Seconds (21.0-31.0)
[2019-06-23] MEDS: ASPIRIN 81 MG ECTAB PO SCH (08:05)
[2019-06-23] MEDS: ATORVASTATIN 40 MG TAB PO SCH (08:06)
[2019-06-23] MEDS: lisinopriL 5 MG TAB PO SCH (08:06)
[2019-06-23] MEDS: METOPROLOL TARTRATE 50 MG TAB PO SCH ×2 (08:06→14:16)
[2019-06-23] MEDS: SERTRALINE HCL 50 MG TABLET PO SCH (08:06)
[2019-06-23] MEDS: FLUTICASONE/UMECLIDIN/VILANTER INH SCH (08:07)
[2019-06-23] MEDS: FUROSEMIDE 40 MG in SYRINGE 0 ML IV SCH (09:16)
[2019-06-23 10:10] LABS: BUN Creatinine Ratio 20.2 (10-20); Calcium 9.1 mg/dl (8.5-10.1); Creatinine Clr Calc Pharmacy 53.7 ml/min; Est GFR (African American) 61.8; Est GFR (Non-African American) 53.3; Magnesium 2.1 mg/dl (1.8-2.4)
[2019-06-23 16:04] LABS: Partial Thromboplastin Ratio 2.3
[2019-06-23 16:06] LABS: Partial Thromboplastin Time 61.7 Seconds (21.0-31.0)
[2019-06-23] MEDS: WARFARIN SOD 10 MG TAB PO SCH (16:42)
--- NOTE | 2019-06-23 16:47 | Cardiology Progress Note ---
Date of Service June 23, 2019 Assessment & Plan (1) Acute on chronic diastolic heart failure: (2) Atrial fibrillation with RVR: The patient's chest x-ray and presentation is certainly consistent with volume overload, is difficult to determine if she has got into heart failure and then atrial fibrillation as result of her volume overload, or if the atrial fibrillation came first. She has a history of rheumatic heart disease, mitral stenosis for which she underwent mechanical mitral valve replacement several years ago. Echocardiogram reveals stable findings. She does have a history of cigarette smoking, but I do not think she currently has a bronchitis or pneumonia, she has no productive cough no fever. Continue IV diuretic therapy. Discontinue oral metoprolol, and start sotalol, first dose 80 mg twice daily. We discussed that starting her on sotalol would have future implications in terms of need to be cautious with the antibiotics she may receive for future lung exacerbations. Doxycycline would be my recommended first-line antibiotic if she was to have a complicated bronchitis in the future while on sotalol. In terms of her QT interval, the corrected QT per the EKG is prolonged at 497 ms today, however this is very difficult to interpret given the irregular RR interval. She had an EKG while in sinus rhythm as an outpatient on 05/03/2019, at that time corrected QT interval was 455 ms. We will monitor her QT interval closely, and I am optimistic, once sinus rhythm is restored, either spontaneously or cardioversion, the QT interval proved to be acceptable. She may continue low-dose of sertraline. Pt to remain in the hospital on telemetry for initiation of antiarrhythmic therapy. She has had multiple recent recurrences of atrial fibrillation, and I feel that antiarrhythmic therapy is indicated. Subjective Mrs. Martinez was seen in follow-up today. She is feeling significantly improved compared to yesterday, but still notes resting shortness of breath. Her diltiazem infusion has been weaned, and she has been on metoprolol tartrate 50 mg every 6 hours. Her ventricular rates have been well controlled in the 70 to 80 bpm range for the most part. EKG this morning 06/23/2019 at 6:45 AM revealed atrial fibrillation at 86 bpm the corrected QT interval. EKG was 497 ms, however I feel this is difficult to calculate given her irregular R to R interval. Review of Systems Review of Systems: All systems reviewed & are unremarkable except as noted in HPI & below Physical Exam Physical Exam: Temp Pulse Resp BP Pulse Ox 36.8 C 100 H 18 115/75 96 06/23/19 16:01 06/23/19 16:01 06/23/19 16:01 06/23/19 16:01 06/23/19 16:01 Constitutional: WD/WN, vitals as above Respiratory: No wheezing or rhonchi, minimal decreased breath sounds at the bases, no rales Cardiovascular: Rate/Rhythm: + irregularly irregular [place] prosthetic heart valve sounds noted Gastrointestinal (Abdomen): normal bowel sounds, soft, nontender, no hepatosplenomegaly Neurologic: PERRL, EOMI, accommodation nl, no face palsy, no dysarthria Results & Data Vital Signs (Past 12 Hours) Vital Signs Temp Pulse Pulse Resp BP BP Pulse Ox 06/23/19 16:01 36.8 C 100 H 18 115/75 96 06/23/19 11:54 36.4 C L 85 18 124/54 L 95 06/23/19 07:37 36.7 C 96 H 19 129/67 94 06/23/19 07:16 86
[2019-06-23] MEDS ORDERED: SOTALOL HCL 80 MG TAB PO ONE (17:15)
--- NOTE | 2019-06-23 17:21 | Hospitalist Progress Note ---
Date of Service June 23, 2019 Assessment & Plan (1) Atrial fibrillation with RVR: History of paroxysmal atrial fibrillation H/O Mechanical MVR TSH:2.5 Increase metoprolol to 75 mg BID Continue Cardizem drip and discontinued on 06/23/19 Also on Digoxin Heart rate is controlled without any palpitation Cardiology consulted-appreciate input and recommendation Clinically better today Acute on chronic systolic and diastolic heart failure CXR:Congestive heart failure Hold PO diuretics which was recently increased as an outpatient Received IV Lasix 40 mg while in ED Start IV Lasix 20mg BID She mentions that Lasix has not been working for her Update ECHO: A. fib with controlled ventricular response, normal LV systolic function and site, RV is normal size and function, LA is dilated, RA is normal, mechanical mitral valve noted without any mitral stenosis Daily weight, I/Os, fluid restriction Oxygen support PRN Diuresing enough with current dose of Lasix Hypertensive Urgency H/O Hypertensive heart disease Continue metoprolol, lisinopril Also on digoxin Blood pressure seems to be under control Leukocytosis No obvious Source of infection Hold Antibiotics for now Leukocytosis slightly improved at 12.26 on 06/22/2019 Ongoing tobacco use disorder Counseled to quit smoking Refused nicotine patch CONSTANCE Depression Continue home medication Dyslipidemia on Statin H/O metallic mitral valve replacement Continue Coumadin INR 2.0 INR is 1.8 as of today and intravenous heparin has been started Coumadin will be increased to 10 mg daily COPD No signs of exacerbation Continue home inhalers Duo nebs as needed DVT Px: on Heparin drip Code Status Full Code Disposition Admit in [facility] 06/22/2019 The patient was seen and examined in telemetry unit She still complains to have some shortness of breath on minimal exertion She has had more swelling of the legs and about 5 pounds weight gain noted on admission Atrial fibrillation seems to be stable She feels that her diuretic has not been working 06/23/2019 Patient was seen and examined in telemetry unit She has been feeling a lot better since admission Denies any significant palpitation and no shortness of breath at rest Leg swelling has been improving Review of Systems Review of Systems: All systems reviewed and are unremarkable except as noted below Respiratory: + dyspnea on exertion Physical Exam Physical Exam: Sitting at the edge of the bed without any acute shortness of breath Constitutional: well developed, well nourished and + obese Eyes: PERRL, conjunctivae normal, anicteric sclerae ENMT: external ear and nose normal, oropharynx normal Neck: trachea midline, no thyromegaly Respiratory: + respiratory distress (Minimal shortness of breath at rest) Auscultation: + diminished lung sounds (Crackles at the right base) and + cr ackles (Minimal crackles at the bases) Cardiovascular: Rate/Rhythm: + abnormal rate and + abnormal rhythm Heart Sounds: + murmur Extremities: + edema (Bilateral leg edema about 1-2+) Gastrointestinal (Abdomen): Inspection/Auscultation: abdomen normal to inspection and normal bowel sounds Lymphatic: no cervical or axillary lymphadenopathy Results & Data Vital Signs (Past 12 Hours) Vital Signs Temp Pulse Pulse Resp BP BP Pulse Ox 06/23/19 16:01 36.8 C 100 H 18 115/75 96 06/23/19 11:54 36.4 C L 85 18 124/54 L 95 06/23/19 07:37 36.7 C 96 H 19 129/67 94 06/23/19 07:16 86 Laboratory Results Short CBC 06/23/19 Range/Units 06:50 WBC 10.54 (4.8-10.8) K/uL Hgb 11.8 L (12.0-16.0) g/dL Hct 38.8 (37-47) % Plt Count 307 (130-400) K/uL BMP 06/23/19 06:55 Sodium 141 Potassium 4.0 Chloride 103 Carbon Dioxide 34 H BUN 22 H Creatinine 1.07 Glucose 119 H Calcium 9.1 Medications Administered Current Inpatient Medications Acetaminophen (Tylenol) 650 mg PO Q4H PRN PRN Reason: Pain or Fever Stop: 07/21/19 21:58 Aspirin (Ecotrin Ectab) 81 mg PO DAILY [facility] Stop: 07/22/19 08:59 Last Admin: 06/23/19 08:05 Dose: 81 mg Documented by: Atorvastatin Calcium (Lipitor) 40 mg PO DAILY [facility] Stop: 07/22/19 08:59 Last Admin: 06/23/19 08:06 Dose: 40 mg Documented by: Digoxin (Lanoxin) 0.125 mg PO HS [facility] Stop: 07/21/19 21:58 Last Admin: 06/22/19 20:23 Dose: 0.125 mg Documented by: Fluticasone/Umeclidinium/Vilanterol (Trelegy Ellipta 100-62.5-25) 1 ea INH DAILY [facility] Stop: 07/23/19 08:59 Last Admin: 06/23/19 08:07 Dose: 1 ea Documented by: Heparin Sodium/Dextrose (Heparin Sodium/Dextrose) 25,000 units in 500 mls @ 21 mls/hr IV .[id number] [facility]; Protocol Stop: 07/22/19 10:24 Last Titration: 06/23/19 16:36 Dose: 1,050 units/hr, 21 mls/hr Documented by: Furosemide 40 mg/ Syringe 4 mls @ 4 mls/min IV DAILY [facility] Stop: 07/23/19 08:59 Last Admin: 06/23/19 09:16 Dose: 4 mls/min Documented by: Ipratropium [place] (Atrovent 0.02% 0.5mg/2.5ml) 0.5 mg INH Q6R PRN PRN Reason: Shortness Of Breath Or Wheezing Stop: 07/21/19 22:22 Levalbuterol HCl (Xopenex 0.63 Mg/3 Ml Neb) 0.63 mg NEB Q6R PRN PRN Reason: Shortness Of Breath Or Wheezing Stop: 07/21/19 22:17 Lisinopril (Zestril) 5 mg PO DAILY [facility] Stop: 07/21/19 21:58 Last Admin: 06/23/19 08:06 Dose: 5 mg Documented by: Nitroglycerin (Nitrostat) 0.4 mg SL UD PRN PRN Reason: Chest Pain Stop: 07/21/19 21:58 Polyethylene Glycol (Miralax Powder Packet) 17 gm PO DAILY PRN PRN Reason: Constipation Stop: 07/21/19 21:58 Sertraline HCl (Zoloft) 25 mg PO DAILY [facility] Stop: 07/22/19 08:59 Last Admin: 06/23/19 08:06 Dose: 25 mg Documented by: Sotalol HCl ([place]) 80 mg PO BID [facility] Stop: 07/24/19 08:59 Warfarin Sodium (Coumadin) 10 mg PO DAILY@1600 [facility] Stop: 07/22/19 15:59 Last Admin: 06/23/19 16:42 Dose: 10 mg Documented by:
[2019-06-23] MEDS: DIGOXIN 0.125 MG TAB PO SCH (21:22)
--- NOTE | 2019-06-23 23:22 | Electrocardiogram Report ---
Test Reason : Blood Pressure : / mmHG Vent. Rate : 086 BPM Atrial Rate : 000 BPM P-R Int : 000 ms QRS Dur : 086 ms QT Int : 416 ms P-R-T Axes : 000 007 -61 degrees QTc Int : 497 ms Atrial fibrillation Anterior infarct , age undetermined Nonspecific T wave abnormality Abnormal ECG When compared with ECG of 22-JUN-2019 06:49, Nonspecific T wave abnormality, improved in Inferior leads Confirmed by Jaleel Anderson ([id number]) on 06/23/2019 11:22:31 PM Referred By: REFERRED SELF Confirmed By:Jaleel Anderson
[2019-06-24 08:59] LABS: INR 3.5 (0.9-1.1); Partial Thromboplastin Ratio 2.9; Prothrombin Time 32.4 Seconds (9.0-12.0)
[2019-06-24 09:15] LABS: Albumin Level 2.9 gm/dl (3.4-5.0); BUN Creatinine Ratio 20.8 (10-20); Calcium 8.9 mg/dl (8.5-10.1); Creatinine Clr Calc Pharmacy 57.9 ml/min; Est GFR (African American) 67.9; Est GFR (Non-African American) 58.6; Magnesium 2.1 mg/dl (1.8-2.4); Potassium 3.7 mmol/L (3.5-5.1)
[2019-06-24] MEDS: HEPARIN SODIUM/DEXTROSE 25,000 UNITS/500 ML BAG IV SCH (09:17)
[2019-06-24] MEDS: SERTRALINE HCL 50 MG TABLET PO SCH (09:20)
[2019-06-24] MEDS: ATORVASTATIN 40 MG TAB PO SCH (09:20)
[2019-06-24] MEDS: FLUTICASONE/UMECLIDIN/VILANTER INH SCH (09:20)
[2019-06-24] MEDS: ASPIRIN 81 MG ECTAB PO SCH (09:21)
[2019-06-24] MEDS: lisinopriL 5 MG TAB PO SCH (09:21)
[2019-06-24] MEDS: FUROSEMIDE 40 MG in SYRINGE 0 ML IV SCH (09:21)
[2019-06-24] MEDS: SOTALOL HCL 80 MG TAB PO SCH ×2 (09:21→20:08)
[2019-06-24 09:24] LABS: Albumin Globulin Ratio 0.9 (0.9-2); Bilirubin,Total 0.5 mg/dl (0.2-1); Globulin 3.3 gm/dl (2.5-4.0); Total Protein 6.2 gm/dl (6.4-8.2)
[2019-06-24 09:28] LABS: Partial Thromboplastin Time 79.4 Seconds (21.0-31.0)
[2019-06-24] MEDS ORDERED: POTASSIUM CHLORIDE 20 MEQ TABCR PO STA (10:34)
--- NOTE | 2019-06-24 12:39 | Electrocardiogram Report ---
Test Reason : Blood Pressure : / mmHG Vent. Rate : 091 BPM Atrial Rate : 000 BPM P-R Int : 000 ms QRS Dur : 084 ms QT Int : 394 ms P-R-T Axes : 000 010 096 degrees QTc Int : 484 ms Atrial fibrillation Nonspecific T wave abnormality Prolonged QT Abnormal ECG When compared with ECG of 23-JUN-2019 06:45, Non-specific change in ST segment in Anterior leads Confirmed by Isaac Paul ([id number] on 06/24/2019 12:39:36 PM Referred By: REFERRED SELF Confirmed By:Isaac Paul
--- NOTE | 2019-06-24 15:43 | Hospitalist Progress Note ---
Date of Service June 24, 2019 Assessment & Plan (1) Atrial fibrillation with RVR: History of paroxysmal atrial fibrillation H/O Mechanical MVR TSH:2.5 Increase metoprolol to 75 mg BID Continue Cardizem drip and discontinued on 06/23/19 Also on Digoxin Heart rate is controlled without any palpitation Cardiology consulted-appreciate input and recommendation Clinically much better today Has been started on sotalol and will need to stay for 48 hours Acute on chronic systolic and diastolic heart failure CXR:Congestive heart failure Hold PO diuretics which was recently increased as an outpatient Received IV Lasix 40 mg while in ED Start IV Lasix 20mg BID She mentions that Lasix has not been working for her Update ECHO: A. fib with controlled ventricular response, normal LV systolic function and site, RV is normal size and function, LA is dilated, RA is normal, mechanical mitral valve noted without any mitral stenosis Daily weight, I/Os, fluid restriction Oxygen support PRN Diuresing enough with current dose of Lasix Creatinine remains stable and normal Hypertensive Urgency H/O Hypertensive heart disease Continue metoprolol, lisinopril Also on digoxin Blood pressure seems to be under control Leukocytosis No obvious Source of infection Hold Antibiotics for now Leukocytosis slightly improved at 12.26 on 06/22/2019 WCC has been normalized Ongoing tobacco use disorder Counseled to quit smoking Refused nicotine patch CONSTANCE Depression Continue home medication Dyslipidemia on Statin H/O metallic mitral valve replacement Continue Coumadin INR 2.0 INR is 1.8 as of today and intravenous heparin has been started Coumadin will be increased to 10 mg daily INR is 3.5 today. Heparin is stopped We will change warfarin to 7.5 mg daily COPD No signs of exacerbation Continue home inhalers Duo nebs as needed DVT Px: on Heparin drip Code Status Full Code Disposition Admit in Tele Subjective 06/22/2019 The patient was seen and examined in telemetry unit She still complains to have some shortness of breath on minimal exertion She has had more swelling of the legs and about 5 pounds weight gain noted on admission Atrial fibrillation seems to be stable She feels that her diuretic has not been working 06/23/2019 Patient was seen and examined in telemetry unit She has been feeling a lot better since admission Denies any significant palpitation and no shortness of breath at rest Leg swelling has been improving 06/24/2019 Patient was seen and examined in telemetry unit She has been feeling a lot better but she has had 5 beat runs of V. tach yesterday Her breathing is better and leg swelling is improving to Review of Systems Review of Systems: All systems reviewed and are unremarkable except as noted below Respiratory: + dyspnea on exertion Physical Exam Physical Exam: Lying in bed comfortably Constitutional: well developed, well nourished and + obese Eyes: PERRL, conjunctivae normal, anicteric sclerae ENMT: external ear and nose normal, oropharynx normal Neck: trachea midline, no thyromegaly Respiratory: + respiratory distress (Minimal shortness of breath at rest) Auscultation: + diminished lung sounds (Crackles at the right base) and + crackles (Minimal crackles at the bases) Cardiovascular: Rate/Rhythm: + abnormal rate and + abnormal rhythm Heart Sounds: + murmur Extremities: + edema (Bilateral leg edema about 1-2+) Gastrointestinal (Abdomen): Inspection/Auscultation: abdomen normal to inspection and normal bowel sounds Musculoskeletal: No acute arthritis in any joints Lymphatic: no cervical or axillary lymphadenopathy Results & Data Vital Signs (Past 12 Hours) Vital Signs Temp Pulse Pulse Resp BP BP Pulse Ox 06/24/19 15:26 36.5 C 100 H 20 118/75 94 06/24/19 11:41 36.7 C 108 H 18 125/61 90 06/24/19 08:00 115 H 06/24/19 07:43 36.7 C 108 H 17 133/93 94 06/24/19 04:13 36.7 C 101 H 20 126/72 97 Laboratory Results BMP 06/24/19 08:04 Sodium 141 Potassium 3.7 Chloride 105 Carbon Dioxide 31 BUN 21 H Creatinine 0.99 Glucose 161 H Calcium 8.9 Liver Function 06/24/19 Range/Units 08:04 Total Bilirubin 0.5 (0.2-1) mg/dl AST 19 (15-37) U/L ALT 43 (12-78) U/L Alkaline Phosphatase 122 H (45-117) U/L Albumin 2.9 L (3.4-5.0) gm/dl Medications Administered Current Inpatient Medications Acetaminophen (Tylenol) 650 mg PO Q4H PRN PRN Reason: Pain or Fever Stop: 07/21/19 21:58 Aspirin (Ecotrin Ectab) 81 mg PO DAILY [facility] Stop: 07/22/19 08:59 Last Admin: 06/24/19 09:21 Dose: 81 mg Documented by: Atorvastatin Calcium (Lipitor) 40 mg PO DAILY [facility] Stop: 07/22/19 08:59 Last Admin: 06/24/19 09:20 Dose: 40 mg Documented by: Digoxin (Lanoxin) 0.125 mg PO HS [facility] Stop: 07/21/19 21:58 Last Admin: 06/23/19 21:22 Dose: 0.125 mg Documented by: Fluticasone/Umeclidinium/Vilanterol (Trelegy Ellipta 100-62.5-25) 1 ea INH DAILY [facility] Stop: 07/23/19 08:59 Last Admin: 06/24/19 09:20 Dose: 1 ea Documented by: Furosemide 40 mg/ Syringe 4 mls @ 4 mls/min IV DAILY [facility] Stop: 07/23/19 08:59 Last Admin: 06/24/19 09:21 Dose: 4 mls/min Documented by: Ipratropium [place] (Atrovent 0.02% 0.5mg/2.5ml) 0.5 mg INH Q6R PRN PRN Reason: Shortness Of Breath Or Wheezing Stop: 07/21/19 22:22 Last Admin: 06/23/19 22:52 Dose: 0.5 mg Documented by: Levalbuterol HCl (Xopenex 0.63 Mg/3 Ml Neb) 0.63 mg NEB Q6R PRN PRN Reason: Shortness Of Breath Or Wheezing Stop: 07/21/19 22:17 Last Admin: 06/23/19 22:52 Dose: 0.63 mg Documented by: Lisinopril (Zestril) 5 mg PO DAILY [facility] Stop: 07/21/19 21:58 Last Admin: 06/24/19 09:21 Dose: 5 mg Documented by: Nitroglycerin (Nitrostat) 0.4 mg SL UD PRN PRN Reason: Chest Pain Stop: 07/21/19 21:58 Polyethylene Glycol (Miralax Powder Packet) 17 gm PO DAILY PRN PRN Reason: Constipation Stop: 07/21/19 21:58 Sertraline HCl (Zoloft) 25 mg PO DAILY [facility] Stop: 07/22/19 08:59 Last Admin: 06/24/19 09:20 Dose: 25 mg Documented by: Sotalol HCl (Betapace) 80 mg PO BID [facility] Stop: 07/24/19 08:59 Last Admin: 06/24/19 09:21 Dose: 80 mg Documented by: Warfarin Sodium (Coumadin) 10 mg PO DAILY@1600 [facility] Stop: 07/22/19 15:59 Last Admin: 06/23/19 16:42 Dose: 10 mg Documented by:
[2019-06-24] MEDS ORDERED: WARFARIN SOD 7.5 MG TAB PO SCH (16:00)
--- NOTE | 2019-06-24 16:03 | Cardiology Progress Note ---
Date of Service June 24, 2019 Assessment & Plan (1) Acute on chronic diastolic heart failure: CO2 is rising, in the setting of chronic COPD without exacerbation. Creatinine however stable. Intake and output suggests somewhat of a mild degree of diuresis, but at this time favor continuing furosemide 40 mg daily. (2) Atrial fibrillation with RVR: History of paroxysmal atrial fibrillation, had been in sinus rhythm at the time of office visit in April,, reverted to atrial fibrillation prompting admission. Her prior to hospital dose of metoprolol was metoprolol succinate 50 twice daily. This is been replaced with sotalol 80 mg twice daily. She is on digoxin 0.125 mg daily at bedtime. Her level had been low this admission, will repeat a level tomorrow. EKG this morning 06/24/2019 revealed atrial fibrillation at 91 bpm with corrected QT of 484 ms. INR today is therapeutic at 3.5 and therefore heparin infusion has been discontinued. Goal INR 2.5-3.5 given history of mechanical mitral valve. (3) NSVT (nonsustained ventricular tachycardia): 6 beat run of monomorphic nonsustained ventricular tachycardia noted on 06/24/2019 at 4:21 AM. This had been a few hours after first dose of sotalol. It is not polymorphic VT. I think it is reasonable to continue loading, sotalol should actually be helpful in terms of treating monomorphic VT. Electrolytes are stable. Potassium supplementation ordered. Orders: EKG for a.m., repeat INR, digoxin level and chemistry panel. Future considerations include transesophageal echocardiogram guided direct current cardioversion on Thursday after she completes her sotalol loading. Subjective Alicia's ventricular rates are improved at rest, with but with minimal activity, atrial fibrillation with rapid ventricular response in excess of 130 bpm is present. Review of Systems Review of Systems: All systems reviewed & are unremarkable except as noted in HPI & below Physical Exam Physical Exam: Temp Pulse Resp BP Pulse Ox 36.5 C 100 H 20 118/75 94 06/24/19 15:26 06/24/19 15:26 06/24/19 15:26 06/24/19 15:26 06/24/19 15:26 Constitutional: WD/WN, vitals as above Respiratory: Mildly decreased breath sounds the bases, no rales rhonchi or wheezing Cardiovascular: RRR, no murmur, no edema Gastrointestinal (Abdomen): normal bowel sounds, soft, nontender, no hepatosplenomegaly Neurologic: PERRL, EOMI, accommodation nl, no face palsy, no dysarthria Results & Data Vital Signs (Past 12 Hours) Vital Signs Temp Pulse Pulse Resp BP BP Pulse Ox 06/24/19 15:26 36.5 C 100 H 20 118/75 94 06/24/19 11:41 36.7 C 108 H 18 125/61 90 06/24/19 08:00 115 H 06/24/19 07:43 36.7 C 108 H 17 133/93 94 06/24/19 04:13 36.7 C 101 H 20 126/72 97
[2019-06-24] MEDS: DIGOXIN 0.125 MG TAB PO SCH (20:08)
[2019-06-25 06:06] LABS: Prothrombin Time 39.2 Seconds (9.0-12.0)
[2019-06-25 06:12] LABS: INR 4.2 (0.9-1.1)
[2019-06-25 06:22] LABS: BUN Creatinine Ratio 23.3 (10-20); Calcium 8.6 mg/dl (8.5-10.1); Creatinine Clr Calc Pharmacy 62.7 ml/min; Est GFR (African American) 75.1; Est GFR (Non-African American) 64.8; Magnesium 2.2 mg/dl (1.8-2.4); Potassium 4.3 mmol/L (3.5-5.1)
[2019-06-25] MEDS: FUROSEMIDE 40 MG in SYRINGE 0 ML IV SCH (08:05)
[2019-06-25] MEDS: SERTRALINE HCL 50 MG TABLET PO SCH (08:05)
[2019-06-25] MEDS: FLUTICASONE/UMECLIDIN/VILANTER INH SCH (08:05)
[2019-06-25] MEDS: ASPIRIN 81 MG ECTAB PO SCH (08:06)
[2019-06-25] MEDS: ATORVASTATIN 40 MG TAB PO SCH (08:06)
[2019-06-25] MEDS: SOTALOL HCL 80 MG TAB PO SCH (08:06)
[2019-06-25] MEDS: lisinopriL 5 MG TAB PO SCH (08:06)
--- NOTE | 2019-06-25 12:45 | Cardiology Progress Note ---
Date of Service June 25, 2019 Assessment & Plan (1) Acute on chronic diastolic heart failure: CO2 is stable today. Creatinine remains stable. Weight loss suggests diuresis however, urine output not accurately recorded. Discontinue IV Lasix. Restart oral furosemide. Outpatient furosemide dose : 40 mg twice daily. Repeat BMP in a.m. (2) Atrial fibrillation with RVR: History of paroxysmal atrial fibrillation, had been in sinus rhythm at the time of office visit in April,, reverted to atrial fibrillation prompting admission. Prolonged QT interval noted per ECG 06/25/2019. Repeat ECG today, 06/26/2019 demonstrates normal QT interval. Reduce sotalol to 40 mg twice daily. Continue metoprolol succinate 25 mg twice daily. Continue low-dose digoxin in the evening. Discussed possible transesophageal echo guided direct current cardioversion on Thursday. Patient agreeable. Risk versus benefit discussed at length. N.p.o. except medications after midnight. Anesthesia consultation ordered. Mildly supratherapeutic INR 3.7 noted today, however trending downward. Restart outpatient dose of warfarin, 5 mg daily. Repeat PT/INR in a.m. Goal INR 2.5- 3.5 with history of mechanical mitral valve. (3) NSVT (nonsustained ventricular tachycardia): No recurrence overnight Prolonged QT noted. Sotalol will be placed on hold with repeat ECG in a.m. Restart metoprolol succinate 25 mg twice daily (reduced dose). Continue telemetry monitoring. Subjective Patient seen and examined the bedside. Unaware of her atrial fibrillation. Telemetry demonstrates atrial fibrillation with heart rate ranging from 100 to 115 bpm. Qtc improved per ECG today. Denies lightheadedness, dizziness, palpitations, syncope, near syncope, chest discomfort, or shortness of breath. present at bedside. Offers no additional concerns/complaints this time. Review of Systems Review of Systems: All systems reviewed & are unremarkable except as noted in HPI & below Physical Exam Constitutional: well developed and well nourished; no acute distress Respiratory: normal respiratory effort, lungs clear to auscultation Cardiovascular: Rate/Rhythm: + tachycardic and + irregularly irregular Heart Sounds: normal S1 and normal S2 Vessels: radial pulses present; no JVD and no carotid bruit Extremities: + pedal edema Results & Data Vital Signs (Past 12 Hours) Vital Signs Temp Pulse Resp BP BP Pulse Ox 06/25/19 11:42 36.6 C 121 H 18 103/71 94 06/25/19 07:04 36.8 C 118 H 24 130/73 90 06/25/19 02:35 36.6 C 112 H 18 100/58 L 93
--- NOTE | 2019-06-25 13:14 | Hospitalist Progress Note ---
Date of Service June 25, 2019 Assessment & Plan (1) Atrial fibrillation with RVR: History of paroxysmal atrial fibrillation H/O Mechanical MVR TSH:2.5 Increase metoprolol to 75 mg BID Continue Cardizem drip and discontinued on 06/23/19 Also on Digoxin Heart rate is controlled without any palpitation Cardiology consulted-appreciate input and recommendation Clinically much better today Has been started on sotalol and will need to stay for 48 hours Remains stable and will probably have DC cardioversion on Thursday Acute on chronic systolic and diastolic heart failure CXR:Congestive heart failure Hold PO diuretics which was recently increased as an outpatient Received IV Lasix 40 mg while in ED Start IV Lasix 20mg BID She mentions that Lasix has not been working for her Update ECHO: A. fib with controlled ventricular response, normal LV systolic function and site, RV is normal size and function, LA is dilated, RA is normal, mechanical mitral valve noted without any mitral stenosis Daily weight, I/Os, fluid restriction Oxygen support PRN Diuresing enough with current dose of Lasix Creatinine remains stable and normal We will continue current dose of intravenous Lasix for now Hypertensive Urgency H/O Hypertensive heart disease Continue metoprolol, lisinopril Also on digoxin Blood pressure seems to be under control Leukocytosis No obvious Source of infection Hold Antibiotics for now Leukocytosis slightly improved at 12.26 on 06/22/2019 WCC has been normalized Ongoing tobacco use disorder Counseled to quit smoking Refused nicotine patch CONSTANCE Depression Continue home medication Dyslipidemia on Statin H/O metallic mitral valve replacement Continue Coumadin INR 2.0 INR is 1.8 as of today and intravenous heparin has been started Coumadin will be increased to 10 mg daily INR is 3.5 today. Heparin is stopped We will change warfarin to 7.5 mg daily INR went up to 4.2 today, will hold Coumadin and start 5 mg from tomorrow COPD No signs of exacerbation Continue home inhalers Duo nebs as needed DVT Px: on Heparin drip Code Status Full Code Disposition Admit in Tele Subjective 06/22/2019 The patient was seen and examined in telemetry unit She still complains to have some shortness of breath on minimal exertion She has had more swelling of the legs and about 5 pounds weight gain noted on admission Atrial fibrillation seems to be stable She feels that her diuretic has not been working 06/23/2019 Patient was seen and examined in telemetry unit She has been feeling a lot better since admission Denies any significant palpitation and no shortness of breath at rest Leg swelling has been improving 06/24/2019 Patient was seen and examined in telemetry unit She has been feeling a lot better but she has had 5 beat runs of V. tach yesterday Her breathing is better and leg swelling is improving too Patient was seen and examined in telemetry unit She complains to have minimal shortness of breath on exertion but no symptoms at rest Her edema has been improving No significant arrhythmias noted on monitor Review of Systems Review of Systems: All systems reviewed and are unremarkable except as noted below Respiratory: + dyspnea on exertion Physical Exam Physical Exam: Sitting at the edge of the bed without any acute symptoms Constitutional: well developed, well nourished and + obese Eyes: PERRL, conjunctivae normal, anicteric sclerae ENMT: external ear and nose normal, oropharynx normal Neck: trachea midline, no thyromegaly Respiratory: + respiratory distress (Minimal shortness of breath at rest) Auscultation: + diminished lung sounds (Crackles at the right base) and + crackles (Minimal crackles at the bases) Cardiovascular: Rate/Rhythm: + abnormal rate and + abnormal rhythm Heart Sounds: + murmur Extremities: + edema (Bilateral leg edema about 1-2+) Gastrointestinal (Abdomen): Inspection/Auscultation: abdomen normal to inspection and normal bowel sounds Musculoskeletal: No acute arthritis involving any joints Lymphatic: no cervical or axillary lymphadenopathy Results & Data Vital Signs (Past 12 Hours) Vital Signs Temp Pulse Resp BP BP Pulse Ox 06/25/19 11:42 36.6 C 121 H 18 103/71 94 06/25/19 07:04 36.8 C 118 H 24 130/73 90 06/25/19 02:35 36.6 C 112 H 18 100/58 L 93 Laboratory Results BMP 06/25/19 05:30 Sodium 142 Potassium 4.3 D Chloride 106 Carbon Dioxide 36 H BUN 21 H Creatinine 0.91 Glucose 121 H Calcium 8.6 Medications Administered Current Inpatient Medications Acetaminophen (Tylenol) 650 mg PO Q4H PRN PRN Reason: Pain or Fever Stop: 07/21/19 21:58 Aspirin (Ecotrin Ectab) 81 mg PO DAILY [facility] Stop: 07/22/19 08:59 Last Admin: 01/11/20 08:06 Dose: 81 mg Documented by: Atorvastatin Calcium (Lipitor) 40 mg PO DAILY [facility] Stop: 07/22/19 08:59 Last Admin: 06/25/19 08:06 Dose: 40 mg Documented by: Digoxin (Lanoxin) 0.125 mg PO HS [facility] Stop: 07/21/19 21:58 Last Admin: 06/24/19 20:08 Dose: 0.125 mg Documented by: Fluticasone/Umeclidinium/Vilanterol (Trelegy Ellipta 100-62.5-25) 1 ea INH DAILY [facility] Stop: 07/23/19 08:59 Last Admin: 06/25/19 08:05 Dose: 1 ea Documented by: Furosemide 40 mg/ Syringe 4 mls @ 4 mls/min IV DAILY [facility] Stop: 07/23/19 08:59 Last Admin: 06/25/19 08:05 Dose: 4 mls/min Documented by: Ipratropium [place] (Atrovent 0.02% 0.5mg/2.5ml) 0.5 mg INH Q6R PRN PRN Reason: Shortness Of Breath Or Wheezing Stop: 07/21/19 22:22 Last Admin: 06/23/19 22:52 Dose: 0.5 mg Documented by: Levalbuterol HCl (Xopenex 0.63 Mg/3 Ml Neb) 0.63 mg NEB Q6R PRN PRN Reason: Shortness Of Breath Or Wheezing Stop: 07/21/19 22:17 Last Admin: 06/23/19 22:52 Dose: 0.63 mg Documented by: Lisinopril (Zestril) 5 mg PO DAILY [facility] Stop: 07/21/19 21:58 Last Admin: 06/25/19 08:06 Dose: 5 mg Documented by: Metoprolol Succinate (Toprol Xl) 25 mg PO BID [facility] Stop: 07/25/19 12:59 Nitroglycerin (Nitrostat) 0.4 mg SL UD PRN PRN Reason: Chest Pain Stop: 07/21/19 21:58 Polyethylene Glycol (Miralax Powder Packet) 17 gm PO DAILY PRN PRN Reason: Constipation Stop: 07/21/19 21:58 Sertraline HCl (Zoloft) 25 mg PO DAILY [facility] Stop: 07/22/19 08:59 Last Admin: 06/25/19 08:05 Dose: 25 mg Documented by: Sotalol HCl (Betapace) 80 mg PO BID [facility] Stop: 07/24/19 08:59 Last Admin: 06/25/19 08:06 Dose: 80 mg Documented by: Warfarin Sodium (Coumadin) 7.5 mg PO DAILY@1600 [facility] Stop: 07/24/19 15:59 Last Admin: 06/24/19 17:05 Dose: 7.5 mg Documented by:
[2019-06-25] MEDS: METOPROLOL SUCC 25MG EXT REL TAB PO SCH ×2 (14:21→19:54)
[2019-06-25] MEDS: DIGOXIN 0.125 MG TAB PO SCH (19:54)
--- NOTE | 2019-06-26 05:47 | Electrocardiogram Report ---
Test Reason : Blood Pressure : / mmHG Vent. Rate : 110 BPM Atrial Rate : 000 BPM P-R Int : 000 ms QRS Dur : 076 ms QT Int : 380 ms P-R-T Axes : 000 033 090 degrees QTc Int : 514 ms Atrial fibrillation with rapid ventricular response Nonspecific T wave abnormality Abnormal ECG When compared with ECG of 24-JUN-2019 06:35, No significant change was found Confirmed by Jaleel Anderson ([id number]) on 06/26/2019 5:47:07 AM Referred By: REFERRED SELF Confirmed By:Jaleel Anderson
--- NOTE | 2019-06-26 06:01 | Electrocardiogram Report ---
Test Reason : Blood Pressure : / mmHG Vent. Rate : 108 BPM Atrial Rate : 110 BPM P-R Int : 000 ms QRS Dur : 084 ms QT Int : 396 ms P-R-T Axes : 000 031 111 degrees QTc Int : 530 ms Atrial fibrillation with rapid ventricular response with premature ventricular or aberrantly conducte d complexes Nonspecific T wave abnormality Prolonged QT Abnormal ECG When compared with ECG of 25-JUN-2019 06:25, Nonspecific T wave abnormality now evident in Inferior leads Confirmed by Jaleel Anderson ([id number]) on 06/26/2019 6:00:40 AM Referred By: REFERRED SELF Confirmed By:Jaleel Anderson
[2019-06-26 07:27] LABS: Prothrombin Time 34.3 Seconds (9.0-12.0)
[2019-06-26 07:28] LABS: INR 3.7 (0.9-1.1)
[2019-06-26 07:36] LABS: BUN Creatinine Ratio 23.3 (10-20); Calcium 8.7 mg/dl (8.5-10.1); Creatinine Clr Calc Pharmacy 62.9 ml/min; Est GFR (African American) 76.1; Est GFR (Non-African American) 65.7; Potassium 4.2 mmol/L (3.5-5.1)
[2019-06-26] MEDS: ATORVASTATIN 40 MG TAB PO SCH (08:21)
[2019-06-26] MEDS: FUROSEMIDE 40 MG in SYRINGE 0 ML IV SCH (08:21)
[2019-06-26] MEDS: lisinopriL 5 MG TAB PO SCH (08:21)
[2019-06-26] MEDS: METOPROLOL SUCC 25MG EXT REL TAB PO SCH ×2 (08:21→19:36)
[2019-06-26] MEDS: ASPIRIN 81 MG ECTAB PO SCH (08:22)
[2019-06-26] MEDS: SERTRALINE HCL 50 MG TABLET PO SCH (08:22)
[2019-06-26] MEDS: FLUTICASONE/UMECLIDIN/VILANTER INH SCH (08:23)
[2019-06-26] MEDS: SOTALOL HCL 80 MG TAB PO SCH ×2 (09:44→19:35)
--- NOTE | 2019-06-26 11:15 | Anesthesiology Consultation ---
Date of Service June 26, 2019 Assessment & Plan (1) Encounter for pre-operative examination: Chart Review Chart Review: Acceptable Risk for Surgery History Height/Weight Height: 5 ft 4 in Weight: 84.4 kg Allergies Allergy/AdvReac Type Severity Reaction Status Date / Time bupropion Allergy Mild . Verified 06/21/19 18:13 tromethamine Allergy Unknown . Verified 06/21/19 18:13 ketorolac AdvReac Severe CHF Verified 06/21/19 18:13 Medications Home Medications Medication Instructions Recorded Confirmed Last Taken albuterol sulfate 2 puff INHALATION Q4 PRN 06/21/19 06/21/19 Unknown amoxicillin 2,000 mg PO UD 06/21/19 06/21/19 Unknown aspirin 81 mg PO DAILY 06/21/19 06/21/19 06/20/19 atorvastatin 40 mg PO DAILY 06/21/19 06/21/19 06/20/19 cyanocobalamin (vitamin B-12) 500 mcg PO DAILY 06/21/19 06/21/19 06/20/19 [Vitamin B-12] digoxin 125 mcg PO HS 06/21/19 06/21/19 06/20/19 [id number] 1 inh INHALATION DAILY 06/21/19 06/21/19 06/20/19 [Trelegy Ellipta] furosemide 40 mg PO BID 06/21/19 06/21/19 06/20/19 ipratropium-albuterol 3 ml INHALATION Q6H PRN 06/21/19 06/21/19 Unknown lisinopril 5 mg PO DAILY 06/21/19 06/21/19 06/20/19 metoprolol succinate 50 mg PO BID 06/21/19 06/21/19 06/20/19 sertraline 25 mg PO DAILY 06/21/19 06/21/19 06/20/19 warfarin 2.5 mg PO WK 06/21/19 06/21/19 Unknown warfarin 5 mg PO [id number] 06/21/19 06/21/19 06/20/19 Active Medications Generic Name Dose Route Start Last Admin Trade Name Freq PRN Reason Stop Dose Admin Aspirin 81 mg 06/22/19 09:00 06/26/19 08:22 Ecotrin Ectab PO 07/22/19 08:59 81 mg DAILY [facility] Administration Atorvastatin Calcium 40 mg 06/22/19 09:00 06/26/19 08:21 Lipitor PO 07/22/19 08:59 40 mg DAILY [facility] Administration Digoxin 0.125 mg 06/21/19 21:59 06/25/19 19:54 Lanoxin PO 07/21/19 21:58 0.125 mg HS [facility] Administration Fluticasone/Umeclidinium/Vilanterol 1 ea 06/23/19 09:00 06/26/19 08:23 Trelegy Ellipta 100-62.5-25 INH 07/23/19 08:59 1 ea DAILY [facility] Administration Ipratropium [place] 0.5 mg 06/21/19 22:23 06/23/19 22:52 Atrovent 0.02% 0.5mg/2.5ml INH 07/21/19 22:22 0.5 mg Q6R PRN Administration Shortness Of Breath Or Wheezing Levalbuterol HCl 0.63 mg 06/21/19 22:18 06/23/19 22:52 Xopenex 0.63 Mg/3 Ml Neb NEB 07/21/19 22:17 0.63 mg Q6R PRN Administration Shortness Of Breath Or Wheezing Lisinopril 5 mg 06/21/19 21:59 06/26/19 08:21 Zestril PO 07/21/19 21:58 5 mg DAILY [facility] Administration Metoprolol Succinate 25 mg 06/25/19 13:00 06/26/19 08:21 Toprol Xl PO 07/25/19 12:59 25 mg BID [facility] Administration Sertraline HCl 25 mg 06/22/19 09:00 06/26/19 08:22 Zoloft PO 07/22/19 08:59 25 mg DAILY [facility] Administration Sotalol HCl 40 mg 06/26/19 09:00 06/26/19 09:44 Betapace PO 07/26/19 08:59 40 mg BID [facility] Administration Past Medical History Medical History (Updated 06/26/19 @ 11:15 by Tigre Menjivar MD) A-fib CHF (congestive heart failure) (Acute) CONSTANCE (generalized anxiety disorder) Past Family History Family History Father Heart disease Brother Heart disease Past Surgical History Surgical History (Updated 01/12/20 @ 11:11 by Tigre Menjivar MD) H/O mitral valve replacement mechanical Social History Smoking Status: Former smoker Hx Alcohol Use: No Hx Substance Use: No Physical Exam Vital Signs Last Vital Signs Temp 36.6 C 06/26/19 08:00 Pulse 105 H 06/26/19 08:58 Resp 19 06/26/19 08:00 BP 135/72 06/26/19 08:00 Pulse Ox 94 06/26/19 08:00 Testing Laboratory Results 06/23/19 06:50 06/26/19 06:55 PT 34.3 Seconds (9.0-12.0) H 06/26/19 06:55 INR 3.7 (0.9-1.1) H 06/26/19 06:55 APTT 79.4 Seconds (21.0-31.0) H* 06/24/19 08:04 Urine Color Yellow 06/21/19 18:30 Urine Appearance Clear (Clear) 06/21/19 18:30 Urine pH 6.0 (4.5-7.5) 06/21/19 18:30 Ur Specific Marceline 1.011 (1.000-1.030) 06/21/19 18:30 Urine Protein 2+ (Negative) H 06/21/19 18:30 Urine Glucose (UA) Negative (Negative) 06/21/19 18:30 Urine Ketones Negative (Negative) 06/21/19 18:30 Urine Nitrite Negative (Negative) 06/21/19 18:30 Ur Leukocyte Esterase Negative (Negative) 06/21/19 18:30 Urine WBC (Auto) 1-5 /hpf (0-5) 06/21/19 18:30 Urine RBC (Auto) 0-4 /hpf (0-4) 06/21/19 18:30 U Hyaline Cast (Auto) 1-5 /lpf (0-5) 06/21/19 18:30 U Epithel Cells (Auto) 20-30 /lpf (0-5) H 06/21/19 18:30 Urine Bacteria (Auto) Negative (Negative) 06/21/19 18:30 Electrocardiogram Date: 06/26/19 Findings: + NSST changes and + AFIB @ (113) Chest X-Ray Date: 06/21/19 Findings: + cardiomegaly, + pulmonary vascular congestion and + pleural effusion (small) Echocardiogram Date: 06/22/19 LV Function: normal (low end of normal) Valvular Disease: + no significant valvular disease (mitral valve replacement)
--- NOTE | 2019-06-26 13:59 | Hospitalist Progress Note ---
Date of Service June 26, 2019 Assessment & Plan (1) Atrial fibrillation with RVR: History of paroxysmal atrial fibrillation H/O Mechanical MVR TSH:2.5 Increase metoprolol to 75 mg BID Continue Cardizem drip and discontinued on 06/23/19 Also on Digoxin Heart rate is controlled without any palpitation Cardiology consulted-appreciate input and recommendation Clinically much better today Has been started on sotalol and will need to stay for 48 hours Her sotalol dose has been decreased She will have elective cardioversion tomorrow Acute on chronic systolic and diastolic heart failure CXR:Congestive heart failure Hold PO diuretics which was recently increased as an outpatient Received IV Lasix 40 mg while in ED Start IV Lasix 20mg BID She mentions that Lasix has not been working for her Update ECHO: A. fib with controlled ventricular response, normal LV systolic function and site, RV is normal size and function, LA is dilated, RA is normal, mechanical mitral valve noted without any mitral stenosis Daily weight, I/Os, fluid restriction Oxygen support PRN Diuresing enough with current dose of Lasix Creatinine remains stable and normal We will continue current dose of intravenous Lasix for now Chest remains clear on examination but he still has bilateral leg edema We will continue current dose of diuretics Hypertensive Urgency H/O Hypertensive heart disease Continue metoprolol, lisinopril Also on digoxin Blood pressure seems to be under control Leukocytosis No obvious Source of infection Hold Antibiotics for now Leukocytosis slightly improved at 12.26 on 06/22/2019 WCC has been normalized Ongoing tobacco use disorder Counseled to quit smoking Refused nicotine patch CONSTANCE Depression Continue home medication Dyslipidemia on Statin H/O metallic mitral valve replacement Continue Coumadin INR 2.0 INR is 1.8 as of today and intravenous heparin has been started Coumadin will be increased to 10 mg daily INR is 3.5 today. Heparin is stopped We will change warfarin to 7.5 mg daily INR went up to 4.2 today, will hold Coumadin and start 5 mg from tomorrow INR 3.7 on 06/26/2019 Her home dose of Coumadin has been restarted COPD No signs of exacerbation Continue home inhalers Duo nebs as needed DVT Px: on Heparin drip Code Status Full Code Disposition Admit in Tele Subjective 06/22/2019 The patient was seen and examined in telemetry unit She still complains to have some shortness of breath on minimal exertion She has had more swelling of the legs and about 5 pounds weight gain noted on admission Atrial fibrillation seems to be stable She feels that her diuretic has not been working 06/23/2019 Patient was seen and examined in telemetry unit She has been feeling a lot better since admission Denies any significant palpitation and no shortness of breath at rest Leg swelling has been improving 06/24/2019 Patient was seen and examined in telemetry unit She has been feeling a lot better but she has had 5 beat runs of V. tach yesterday Her breathing is better and leg swelling is improving too Patient was seen and examined in telemetry unit She complains to have minimal shortness of breath on exertion but no symptoms at rest Her edema has been improving No significant arrhythmias noted on monitor 06/26/2019 The patient was seen and examined in telemetry unit She denies any symptoms except shortness of breath on minimal exertion She is agreeable to go for elective cardioversion tomorrow Review of Systems Review of Systems: All systems reviewed and are unremarkable except as noted below Respiratory: + dyspnea on exertion Physical Exam Physical Exam: Lying in bed comfortably Constitutional: well developed, well nourished and + obese Eyes: PERRL, conjunctivae normal, anicteric sclerae ENMT: external ear and nose normal, oropharynx normal Neck: trachea midline, no thyromegaly Respiratory: + respiratory distress (Minimal shortness of breath at rest) Auscultation: + diminished lung sounds (Crackles at the right base) and + crackles (Minimal crackles at the bases) Cardiovascular: Rate/Rhythm: + abnormal rate and + abnormal rhythm Heart Sounds: + murmur Extremities: + edema (Bilateral leg edema about 1-2+) Gastrointestinal (Abdomen): Inspection/Auscultation: abdomen normal to inspection and normal bowel sounds Musculoskeletal: Denies any acute arthritis involving any joints Neurologic: PERRL, EOMI, accommodation nl, no face palsy, no dysarthria Lymphatic: no cervical or axillary lymphadenopathy Results & Data Vital Signs (Past 12 Hours) Vital Signs Temp Pulse Pulse Resp BP BP Pulse Ox 06/26/19 11:41 36.5 C 108 H 19 129/85 94 06/26/19 08:58 105 H 06/26/19 08:00 36.6 C 68 19 135/72 94 06/26/19 04:07 36.7 C 104 H 18 121/68 93 Pulse Ox 06/26/19 11:41 06/26/19 08:58 06/26/19 08:00 94 06/26/19 04:07 Laboratory Results BMP 06/26/19 06:55 Sodium 142 Potassium 4.2 Chloride 105 Carbon Dioxide 36 H BUN 21 H Creatinine 0.90 Glucose 111 H Calcium 8.7 Medications Administered Current Inpatient Medications Acetaminophen (Tylenol) 650 mg PO Q4H PRN PRN Reason: Pain or Fever Stop: 07/21/19 21:58 Aspirin (Ecotrin Ectab) 81 mg PO DAILY [facility] Stop: 07/22/19 08:59 Last Admin: 06/26/19 08:22 Dose: 81 mg Documented by: Atorvastatin Calcium (Lipitor) 40 mg PO DAILY [facility] Stop: 07/22/19 08:59 Last Admin: 06/26/19 08:21 Dose: 40 mg Documented by: Digoxin (Lanoxin) 0.125 mg PO HS [facility] Stop: 07/21/19 21:58 Last Admin: 06/25/19 19:54 Dose: 0.125 mg Documented by: Fluticasone/Umeclidinium/Vilanterol (Trelegy Ellipta 100-62.5-25) 1 ea INH DAILY [facility] Stop: 07/23/19 08:59 Last Admin: 06/26/19 08:23 Dose: 1 ea Documented by: Furosemide (Lasix) 40 mg PO BID17 [facility] Stop: 07/27/19 06:59 Ipratropium [place] (Atrovent 0.02% 0.5mg/2.5ml) 0.5 mg INH Q6R PRN PRN Reason: Shortness Of Breath Or Wheezing Stop: 07/21/19 22:22 Last Admin: 06/23/19 22:52 Dose: 0.5 mg Documented by: Levalbuterol HCl (Xopenex 0.63 Mg/3 Ml Neb) 0.63 mg NEB Q6R PRN PRN Reason: Shortness Of Breath Or Wheezing Stop: 07/21/19 22:17 Last Admin: 06/23/19 22:52 Dose: 0.63 mg Documented by: Lisinopril (Zestril) 5 mg PO DAILY [facility] Stop: 07/21/19 21:58 Last Admin: 06/26/19 08:21 Dose: 5 mg Documented by: Metoprolol Succinate (Toprol Xl) 25 mg PO BID [facility] Stop: 07/25/19 12:59 Last Admin: 06/26/19 08:21 Dose: 25 mg Documented by: Nitroglycerin (Nitrostat) 0.4 mg SL UD PRN PRN Reason: Chest Pain Stop: 07/21/19 21:58 Polyethylene Glycol (Miralax Powder Packet) 17 gm PO DAILY PRN PRN Reason: Constipation Stop: 07/21/19 21:58 Sertraline HCl (Zoloft) 25 mg PO DAILY [facility] Stop: 07/22/19 08:59 Last Admin: 06/26/19 08:22 Dose: 25 mg Documented by: Sotalol HCl (Betapace) 40 mg PO BID [facility] Stop: 07/26/19 08:59 Last Admin: 06/26/19 09:44 Dose: 40 mg Documented by: Warfarin Sodium (Coumadin) 5 mg PO DAILY@1600 [facility] Stop: 07/26/19 15:59
[2019-06-26] MEDS: WARFARIN SOD 5 MG TAB PO SCH (16:57)
[2019-06-26] MEDS: DIGOXIN 0.125 MG TAB PO SCH (19:36)
--- NOTE | 2019-06-26 21:52 | Electrocardiogram Report ---
Test Reason : Blood Pressure : / mmHG Vent. Rate : 113 BPM Atrial Rate : 125 BPM P-R Int : 000 ms QRS Dur : 090 ms QT Int : 334 ms P-R-T Axes : 000 -07 105 degrees QTc Int : 458 ms Atrial fibrillation with rapid ventricular response with premature ventricular or aberrantly conducte d complexes Nonspecific T wave abnormality Abnormal ECG When compared with ECG of 25-JUN-2019 12:46, Nonspecific T wave abnormality no longer evident in Inferior leads Confirmed by Jaleel Anderson ([id number]) on 06/26/2019 9:51:57 PM Referred By: REFERRED SELF Confirmed By:Jaleel Anderson
[2019-06-27] MEDS ORDERED: PROPOFOL IV EMULSION 10 MG/ML 20 ML VIAL IV ONE ×2 (07:12→10:41)
[2019-06-27 07:22] LABS: INR 2.6 (0.9-1.1); Prothrombin Time 25.1 Seconds (9.0-12.0)
[2019-06-27 07:43] LABS: BUN Creatinine Ratio 26.6 (10-20); Creatinine Clr Calc Pharmacy 59.7 ml/min; Est GFR (African American) 72.2; Est GFR (Non-African American) 62.3
--- NOTE | 2019-06-27 08:31 | Anesthesiology Progress Note ---
Date of Service June 27, 2019 Anesthesia Post Procedure Vital Signs Vital Signs: Temp Pulse Pulse Resp BP BP Pulse Ox 06/27/19 08:25 97 H 16 135/82 95 06/27/19 07:31 103 H 17 160/103 H 92 06/27/19 07:23 109 H 06/27/19 04:07 97.7 F 90 20 133/81 91 06/26/19 22:56 97.5 F L 121 H 18 144/79 H 92 06/26/19 19:36 130 H 06/26/19 19:34 98.6 F 110 H 18 125/66 93 06/26/19 15:55 97.7 F 116 H 18 141/61 H 92 06/26/19 11:41 97.7 F 108 H 19 129/85 94 06/26/19 08:58 105 H Transfer of Care Handoff Completed per policy Notes Mental Status: alert / awake / arousable and participated in evaluation Patient Amnestic to Procedure: Yes Nausea / Vomiting: adequately controlled Pain: adequately controlled Airway Patency, RR, SpO2: stable & adequate BP & HR: stable & adequate Hydration State: stable & adequate Anesthetic Complications: no major complications apparent and Pt Satisfied with anesthetic care
[2019-06-27] MEDS: SOTALOL HCL 80 MG TAB PO SCH ×2 (08:59→19:56)
[2019-06-27] MEDS: METOPROLOL SUCC 25MG EXT REL TAB PO SCH ×2 (09:00→19:55)
[2019-06-27] MEDS: SERTRALINE HCL 50 MG TABLET PO SCH (09:10)
[2019-06-27] MEDS: lisinopriL 5 MG TAB PO SCH (09:10)
[2019-06-27] MEDS: ASPIRIN 81 MG ECTAB PO SCH (09:10)
[2019-06-27] MEDS: FLUTICASONE/UMECLIDIN/VILANTER INH SCH (09:10)
[2019-06-27] MEDS: FUROSEMIDE 40 MG TAB PO SCH ×3 (09:10→17:01)
[2019-06-27] MEDS: ATORVASTATIN 40 MG TAB PO SCH (09:11)
--- NOTE | 2019-06-27 10:14 | Electrocardiogram Report ---
Test Reason : Blood Pressure : / mmHG Vent. Rate : 099 BPM Atrial Rate : 000 BPM P-R Int : 000 ms QRS Dur : 080 ms QT Int : 368 ms P-R-T Axes : 000 002 121 degrees QTc Int : 472 ms Atrial fibrillation Nonspecific ST and T wave abnormality Prolonged QT Abnormal ECG When compared with ECG of 26-JUN-2019 07:00, No significant change was found Confirmed by Juan A Ramirez ([id number]) on 06/27/2019 10:14:21 AM Referred By: REFERRED SELF Confirmed By:Juan A Ramirez
--- NOTE | 2019-06-27 10:44 | Cardiology Progress Note ---
Date of Service June 27, 2019 Assessment & Plan (1) Acute on chronic diastolic heart failure: CO2 is stable today. Creatinine remains stable. Weight loss suggests diuresis however, urine output not accurately recorded. Discontinue IV Lasix. Restart oral furosemide. Outpatient furosemide dose : 40 mg twice daily. Repeat BMP in a.m. (2) Atrial fibrillation with RVR: History of paroxysmal atrial fibrillation, had been in sinus rhythm at the time of office visit in April,, reverted to atrial fibrillation prompting admission. Prolonged QT interval noted per ECG 06/25/2019. Repeat ECG today, 06/26/2019 and 06/27/2019 demonstrates normal QT interval. Sotalol reduced to 40 mg twice daily. Continue metoprolol succinate 25 mg twice daily and low-dose digoxin in the evening. Transesophageal echocardiogram performed this morning 06/27/2019 demonstrating a small mobile echodensity adherent to the Coumadin ridge suggestive of thrombus although potential vegetation not excluded. Continue anticoagulation for 4 weeks uninterrupted with plans for elective external direct-current cardioversion. Recommend blood cultures x2 for completeness although patient has no signs/symptoms of infectious process at this time. Dose Coumadin for goal INR of 2.5-3.5. (3) NSVT (nonsustained ventricular tachycardia): Subjective Patient seen and examined at the bedside. Denies chest pain or or palpitations. Transesophageal echocardiogram performed this morning demonstrating a small mobile echodensity consistent with thrombus adherent to the Coumadin ridge. Requesting discharge if possible. is present at bedside. Review of Systems Review of Systems: All systems reviewed & are unremarkable except as noted in HPI & below Physical Exam Constitutional: well developed and well nourished; no acute distress Respiratory: normal respiratory effort, lungs clear to auscultation Cardiovascular: Rate/Rhythm: + tachycardic and + irregularly irregular Heart Sounds: normal S1 and normal S2 Vessels: radial pulses present; no JVD and no carotid bruit Extremities: + pedal edema Results & Data Vital Signs (Past 12 Hours) Vital Signs Temp Pulse Pulse Resp BP Pulse Ox 06/27/19 09:30 86 20 145/71 H 92 06/27/19 08:49 92 H 96 H 20 155/81 H 91 06/27/19 08:39 96 H 16 125/72 95 06/27/19 08:25 97 H 16 135/82 95 06/27/19 07:31 103 H 17 160/103 H 92 06/27/19 07:23 109 H 06/27/19 04:07 36.5 C 90 20 133/81 91 06/26/19 22:56 36.4 C L 121 H 18 144/79 H 92
--- NOTE | 2019-06-27 13:57 | Hospitalist Progress Note ---
Date of Service June 27, 2019 Assessment & Plan (1) Atrial fibrillation with RVR: History of paroxysmal atrial fibrillation H/O Mechanical MVR TSH:2.5 Increase metoprolol to 75 mg BID Continue Cardizem drip and discontinued on 06/23/19 Also on Digoxin Heart rate is controlled without any palpitation Cardiology consulted-appreciate input and recommendation Clinically much better today Has been started on sotalol and will need to stay for 48 hours Her sotalol dose has been decreased Elective cardioversion canceled due to intracardiac thrombus Has been getting a small dose of beta-deangelo Still getting occasional palpitation with tachycardia with ambulation Likely be discharged tomorrow-EKG in a.m. Acute on chronic systolic and diastolic heart failure CXR:Congestive heart failure Hold PO diuretics which was recently increased as an outpatient Received IV Lasix 40 mg while in ED Start IV Lasix 20mg BID She mentions that Lasix has not been working for her Update ECHO: A. fib with controlled ventricular response, normal LV systolic function and site, RV is normal size and function, LA is dilated, RA is normal, mechanical mitral valve noted without any mitral stenosis Daily weight, I/Os, fluid restriction Oxygen support PRN Diuresing enough with current dose of Lasix Creatinine remains stable and normal We will continue current dose of intravenous Lasix for now Chest remains clear on examination but he still has bilateral leg edema We will continue current dose of diuretics Leg swelling and shortness of breath are much better she has been ambulating Without significant difficulty Hypertensive Urgency H/O Hypertensive heart disease Continue metoprolol, lisinopril Also on digoxin Blood pressure seems to be under control Leukocytosis No obvious Source of infection Hold Antibiotics for now Leukocytosis slightly improved at 12.26 on 06/22/2019 WCC has been normalized Ongoing tobacco use disorder Counseled to quit smoking Refused nicotine patch CONSTANCE Depression Continue home medication Dyslipidemia on Statin H/O metallic mitral valve replacement Continue Coumadin INR 2.0 INR is 1.8 as of today and intravenous heparin has been started Coumadin will be increased to 10 mg daily INR is 3.5 today. Heparin is stopped We will change warfarin to 7.5 mg daily INR went up to 4.2 today, will hold Coumadin and start 5 mg from tomorrow INR 3.7 on 06/26/2019 Her home dose of Coumadin has been restarted COPD No signs of exacerbation Continue home inhalers Duo nebs as needed DVT Px: on Heparin drip Code Status Full Code Disposition Admit in Tele Subjective 06/22/2019 The patient was seen and examined in telemetry unit She still complains to have some shortness of breath on minimal exertion She has had more swelling of the legs and about 5 pounds weight gain noted on admission Atrial fibrillation seems to be stable She feels that her diuretic has not been working 06/23/2019 Patient was seen and examined in telemetry unit She has been feeling a lot better since admission Denies any significant palpitation and no shortness of breath at rest Leg swelling has been improving 06/24/2019 Patient was seen and examined in telemetry unit She has been feeling a lot better but she has had 5 beat runs of V. tach yesterday Her breathing is better and leg swelling is improving too Patient was seen and examined in telemetry unit She complains to have minimal shortness of breath on exertion but no symptoms at rest Her edema has been improving No significant arrhythmias noted on monitor 06/26/2019 The patient was seen and examined in telemetry unit She denies any symptoms except shortness of breath on minimal exertion She is agreeable to go for elective cardioversion tomorrow 06/27/2019 The patient was seen and examined in telemetry unit She was noted to have a small clot in the heart and could not go for elective cardioversion Denies any symptoms as of today Will stay tonight and tomorrow she will be discharged Review of Systems Review of Systems: All systems reviewed and are unremarkable except as noted below Respiratory: + dyspnea on exertion Physical Exam Physical Exam: Sitting at the edge of the any acute symptoms Constitutional: well developed, well nourished and + obese Eyes: PERRL, conjunctivae normal, anicteric sclerae ENMT: external ear and nose normal, oropharynx normal Neck: trachea midline, no thyromegaly Respiratory: + respiratory distress (Minimal shortness of breath at rest) Auscultation: + diminished lung sounds (Crackles at the right base) and + crackles (Minimal crackles at the bases) Cardiovascular: Rate/Rhythm: + abnormal rate and + abnormal rhythm Heart Sounds: + murmur Extremities: + edema (Bilateral leg edema about 1-2+) Gastrointestinal (Abdomen): Inspection/Auscultation: abdomen normal to inspection and normal bowel sounds Neurologic: PERRL, EOMI, accommodation nl, no face palsy, no dysarthria Lymphatic: no cervical or axillary lymphadenopathy Results & Data Vital Signs (Past 12 Hours) Vital Signs Temp Pulse Pulse Resp BP BP Pulse Ox 06/27/19 11:45 36.7 C 102 H 18 141/75 H 93 06/27/19 09:30 86 20 145/71 H 92 06/27/19 08:49 92 H 96 H 20 155/81 H 91 06/27/19 08:39 96 H 16 125/72 95 06/27/19 08:25 97 H 16 135/82 95 06/27/19 07:31 103 H 17 160/103 H 92 06/27/19 07:23 109 H 06/27/19 04:07 36.5 C 90 20 133/81 91 Laboratory Results BMP 06/27/19 06:53 Sodium 145 Potassium 4.0 Chloride 107 Carbon Dioxide 34 H BUN 25 H Creatinine 0.94 Glucose 119 H Calcium 9.0 Medications Administered Current Inpatient Medications Acetaminophen (Tylenol) 650 mg PO Q4H PRN PRN Reason: Pain or Fever Stop: 07/21/19 21:58 Aspirin (Ecotrin Ectab) 81 mg PO DAILY [facility] Stop: 07/22/19 08:59 Last Admin: 06/27/19 09:10 Dose: 81 mg Documented by: Atorvastatin Calcium (Lipitor) 40 mg PO DAILY [facility] Stop: 07/22/19 08:59 Last Admin: 06/27/19 09:11 Dose: 40 mg Documented by: Digoxin (Lanoxin) 0.125 mg PO HS [facility] Stop: 07/21/19 21:58 Last Admin: 06/26/19 19:36 Dose: 0.125 mg Documented by: Fluticasone/Umeclidinium/Vilanterol (Trelegy Ellipta 100-62.5-25) 1 ea INH DAILY [facility] Stop: 07/23/19 08:59 Last Admin: 06/27/19 09:10 Dose: 1 ea Documented by: Furosemide (Lasix) 40 mg PO BID17 [facility] Stop: 07/27/19 06:59 Last Admin: 06/27/19 10:31 Dose: Not Given Documented by: Ipratropium [place] (Atrovent 0.02% 0.5mg/2.5ml) 0.5 mg INH Q6R PRN PRN Reason: Shortness Of Breath Or Wheezing Stop: 07/21/19 22:22 Last Admin: 06/23/19 22:52 Dose: 0.5 mg Documented by: Levalbuterol HCl (Xopenex 0.63 Mg/3 Ml Neb) 0.63 mg NEB Q6R PRN PRN Reason: Shortness Of Breath Or Wheezing Stop: 07/21/19 22:17 Last Admin: 06/23/19 22:52 Dose: 0.63 mg Documented by: Lisinopril (Zestril) 5 mg PO DAILY [facility] Stop: 07/21/19 21:58 Last Admin: 06/27/19 09:10 Dose: 5 mg Documented by: Metoprolol Succinate (Toprol Xl) 25 mg PO BID [facility] Stop: 07/25/19 12:59 Last Admin: 06/27/19 09:00 Dose: 25 mg Documented by: Nitroglycerin (Nitrostat) 0.4 mg SL UD PRN PRN Reason: Chest Pain Stop: 07/21/19 21:58 Polyethylene Glycol (Miralax Powder Packet) 17 gm PO DAILY PRN PRN Reason: Constipation Stop: 07/21/19 21:58 Sertraline HCl (Zoloft) 25 mg PO DAILY [facility] Stop: 07/22/19 08:59 Last Admin: 06/27/19 09:10 Dose: 25 mg Documented by: Sotalol HCl (Betapace) 40 mg PO BID [facility] Stop: 07/26/19 08:59 Last Admin: 06/27/19 08:59 Dose: 40 mg Documented by: Warfarin Sodium (Coumadin) 5 mg PO DAILY@1600 [facility] Stop: 07/26/19 15:59 Last Admin: 06/26/19 16:57 Dose: 5 mg Documented by:
[2019-06-27] MEDS ORDERED: SOTALOL HCL 80 MG TAB PO ONE (15:45)
[2019-06-27] MEDS: WARFARIN SOD 5 MG TAB PO SCH (15:51)
[2019-06-27] MEDS: DIGOXIN 0.125 MG TAB PO SCH (19:55)
[2019-06-28 07:35] LABS: INR 2.7 (0.9-1.1); Prothrombin Time 26.2 Seconds (9.0-12.0)
[2019-06-28 07:51] LABS: BUN Creatinine Ratio 23.7 (10-20); Calcium 8.8 mg/dl (8.5-10.1); Creatinine Clr Calc Pharmacy 61.4 ml/min; Est GFR (African American) 75.1; Est GFR (Non-African American) 64.8; Potassium 3.8 mmol/L (3.5-5.1)
--- NOTE | 2019-06-28 08:08 | Anesthesiology Progress Note ---
Date of Service June 28, 2019 Anesthesia Post Procedure Vital Signs Vital Signs: Temp Pulse Pulse Pulse Pulse Resp BP 06/28/19 08:00 36.8 C 100 H 20 118/63 06/28/19 03:45 36.8 C 103 H 20 06/28/19 00:06 36.6 C 100 H 19 06/27/19 19:55 107 H 06/27/19 19:54 36.4 C L 107 H 18 123/86 06/27/19 16:00 36.4 C L 87 20 06/27/19 15:08 100 H 06/27/19 11:45 36.7 C 102 H 18 06/27/19 09:30 86 20 145/71 H 06/27/19 08:49 92 H 96 H 20 155/81 H 06/27/19 08:39 96 H 16 125/72 06/27/19 08:25 97 H 16 135/82 BP Pulse Ox 06/28/19 08:00 98 06/28/19 03:45 125/72 95 06/28/19 00:06 134/75 94 06/27/19 19:55 06/27/19 19:54 94 06/27/19 16:00 146/67 H 93 06/27/19 15:08 06/27/19 11:45 141/75 H 93 06/27/19 09:30 92 06/27/19 08:49 91 06/27/19 08:39 95 06/27/19 08:25 95 Transfer of Care Handoff Completed per policy Notes Mental Status: alert / awake / arousable Patient Amnestic to Procedure: Yes Nausea / Vomiting: adequately controlled Pain: adequately controlled Anesthetic Complications: no major complications apparent and Pt Satisfied with anesthetic care
[2019-06-28] MEDS: SOTALOL HCL 80 MG TAB PO SCH ×2 (08:19→20:16)
[2019-06-28] MEDS: METOPROLOL SUCC 25MG EXT REL TAB PO SCH ×2 (08:19→20:16)
[2019-06-28] MEDS: SERTRALINE HCL 50 MG TABLET PO SCH (08:20)
[2019-06-28] MEDS: FUROSEMIDE 40 MG TAB PO SCH ×2 (08:20→17:02)
[2019-06-28] MEDS: ASPIRIN 81 MG ECTAB PO SCH (08:20)
[2019-06-28] MEDS: lisinopriL 5 MG TAB PO SCH (08:20)
[2019-06-28] MEDS: ATORVASTATIN 40 MG TAB PO SCH (08:22)
[2019-06-28] MEDS: FLUTICASONE/UMECLIDIN/VILANTER INH SCH (08:22)
[2019-06-28] MEDS ORDERED: SOTALOL HCL 80 MG TAB PO ONE (09:00)
--- NOTE | 2019-06-28 10:47 | Electrocardiogram Report ---
Test Reason : Blood Pressure : / mmHG Vent. Rate : 105 BPM Atrial Rate : 000 BPM P-R Int : 000 ms QRS Dur : 086 ms QT Int : 374 ms P-R-T Axes : 000 -13 182 degrees QTc Int : 494 ms Atrial fibrillation with rapid ventricular response Minimal voltage criteria for LVH, may be normal variant ( Josemanuel product ) Anterior infarct , age undetermined Abnormal ECG When compared with ECG of 27-JUN-2019 09:18, Anterior infarct is now Present Nonspecific T wave abnormality now evident in Anterior leads Confirmed by Ector Hall ([id number]) on 06/28/2019 10:47:41 AM Referred By: REFERRED SELF Confirmed By:Ector Hall
[2019-06-28] MEDS ORDERED: VANCOMYCIN CONSULT ACTIVE PRN (11:52)
[2019-06-28] MEDS ORDERED: VANCOMYCIN HCL 1,000 MG in SODIUM CHLORIDE 0.9% 250 ML IV ONE (11:53)
[2019-06-28] MEDS ORDERED: VANCOMYCIN HCL 2,000 MG in SODIUM CHLORIDE 0.9% 500 ML IV ONE (12:30)
--- NOTE | 2019-06-28 14:08 | Pharmacy Report ---
Pharmacy Abx Initial Consult - Date of Service June 28, 2019 - Pharmacy Dosing Scope Date of Consult: 06/28 Consultation requested by: Dr. Crystal Pharmacy is consulted to initiate vancomycin IV/PO dosing therapy, order appropriate labs and adjust drug dose/frequency. - Subjective The patient is a 69 year old F admitted on 06/21/19 18:41. - Objective Height: 5 ft 4 in Weight: 82.3 kg Vital Signs (Past 12hrs): Vital Signs Temp Pulse Resp BP BP Pulse Ox 06/28/19 12:28 36.7 C 95 H 18 135/85 95 06/28/19 08:00 36.8 C 100 H 20 118/63 98 06/28/19 03:45 36.8 C 103 H 20 125/72 95 Lab Results (24hrs): Laboratory Tests (24 Hours) 06/28/19 06:52 Creatinine 0.91 Est Cr Clr Drug Dosing 61.4 Micro Results: 06/28/19 12:26 Aerobic Blood Culture - Pending Blood Anaerobic Blood Culture - Pending 06/28/19 12:20 Aerobic Blood Culture - Pending Blood Anaerobic Blood Culture - Pending - Risk Factors for Resistance * Hospitalization for 48 hours or more within the past 90 days - Assessment & Plan Assessment 69 year old female started on vancomycin due to positive blood cultures. Preliminary 06/18 positive for gm positive cocci in chains. Repeat blood cultures for today pending. Unclear if prelim culture result contaminant vs. pathogen. Will follow up on cultures tomorrow for possible deescalation. Plan Vancomycin IV * Ordered vancomycin 2000 mg x 1 (~24 mg/kg loading dose) * Patient meets criteria for vancomycin AUC dosing nomogram - Will dose vancomycin 1000 mg iv q 12 hr to achieve AUC: 565 * AUC/DAYDAY is the preferred PK/PD target for vancomycin * Target AUC/DAYDAY = 400-600 * AUC guided dosing is effective and associated with decreased risk of nephrotoxicity * Trough levels poorly correlate with AUC/DAYDAY and trough monitoring has been associated with increased risk of nephrotoxicity Pharmacy will continue to follow and will adjust dose/frequency as necessary. Thank you.
--- NOTE | 2019-06-28 14:52 | Cardiology Progress Note ---
Date of Service June 28, 2019 Assessment & Plan (1) Endocarditis of prosthetic valve: (2) Bacteremia: (3) Acute on chronic diastolic heart failure: Patient volume status improved. Continue oral diuretic therapy. (4) Atrial fibrillation with RVR: Prolonged QT with sotalol 80 mg twice daily noted per ECG 06/25/2019. Sotalol dose subsequently reduced to 40 mg twice daily. Repeat ECG today, 06/26/2019 and 06/27/2019 demonstrates normal QT interval. Sotalol titrated to 80 mg in the morning, 40 mg in the evening 06/27/2019 Repeat ECG performed this a.m. demonstrates QT interval less than 500ms. Recommend continue sotalol 80 mg in the morning, 40 mg in the evening in addition to metoprolol 25 mg twice daily and low-dose digoxin in the evening. Antibiotics as per internal medicine. Repeat blood cultures pending. Await final classification and sensitivities. Defer direct-current cardioversion for 4 weeks at this time. Dose Coumadin daily for goal INR of 2.5-3.5 in the setting of mechanical mitral valve prosthesis. (5) NSVT (nonsustained ventricular tachycardia): No recurrence. Subjective Patient seen and examined at the bedside. Blood culture demonstrating gram- positive cocci in chains in 1 bottle. Denies fever or chills. No focal weakness, slurred speech, paresthesias, gait instability. Denies chest pain or palpitations. Heart rate unchanged on telemetry. Tolerating sotalol which was titrated yesterday to 80 mg in the a.m., 40 mg in the evening. INR is therapeutic. Review of Systems Review of Systems: All systems reviewed & are unremarkable except as noted in HPI & below Physical Exam Constitutional: well developed and well nourished; no acute distress Respiratory: normal respiratory effort, lungs clear to auscultation Cardiovascular: Rate/Rhythm: + tachycardic and + irregularly irregular Heart Sounds: normal S1 and normal S2 Vessels: radial pulses present; no JVD and no carotid bruit Extremities: + pedal edema Gastrointestinal (Abdomen): Inspection/Auscultation: normal bowel sounds; abdomen not distended Percussion/Palpation: abdomen soft; abdomen nontender, no guarding and abdomen not rigid Results & Data Vital Signs (Past 12 Hours) Vital Signs Temp Pulse Resp BP BP Pulse Ox 06/28/19 12:28 36.7 C 95 H 18 135/85 95 06/28/19 08:00 36.8 C 100 H 20 118/63 98 06/28/19 03:45 36.8 C 103 H 20 125/72 95 (1) Endocarditis of prosthetic valve Encounter type: initial encounter Qualified Code(s): T82.6XXA - Infection and inflammatory reaction due to cardiac valve prosthesis, initial encounter; I38 - Endocarditis, valve unspecified
--- NOTE | 2019-06-28 16:27 | Hospitalist Progress Note ---
Date of Service June 28, 2019 Assessment & Plan (1) Atrial fibrillation with RVR: History of paroxysmal atrial fibrillation H/O Mechanical MVR TSH:2.5 Increase metoprolol to 75 mg BID Continue Cardizem drip and discontinued on 06/23/19 Also on Digoxin Heart rate is controlled without any palpitation Cardiology consulted-appreciate input and recommendation Clinically much better today Has been started on sotalol and will need to stay for 48 hours Her sotalol dose has been decreased Elective cardioversion canceled due to intracardiac thrombus Has been getting a small dose of beta-deangelo Still getting occasional palpitation with tachycardia with ambulation Heart rate remains reasonably stable on sotalol Acute on chronic systolic and diastolic heart failure CXR:Congestive heart failure Hold PO diuretics which was recently increased as an outpatient Received IV Lasix 40 mg while in ED Start IV Lasix 20mg BID She mentions that Lasix has not been working for her Update ECHO: A. fib with controlled ventricular response, normal LV systolic function and site, RV is normal size and function, LA is dilated, RA is normal, mechanical mitral valve noted without any mitral stenosis Daily weight, I/Os, fluid restriction Oxygen support PRN Diuresing enough with current dose of Lasix Creatinine remains stable and normal Clinically much better with Lasix Denies any shortness of breath at rest Hypertensive Urgency H/O Hypertensive heart disease Continue metoprolol, lisinopril Also on digoxin Blood pressure seems to be under control Leukocytosis No obvious Source of infection Hold Antibiotics for now Leukocytosis slightly improved at 12.26 on 06/22/2019 WCC has been normalized Ongoing tobacco use disorder Counseled to quit smoking Refused nicotine patch CONSTANCE Depression Continue home medication Dyslipidemia on Statin H/O metallic mitral valve replacement Continue Coumadin INR 2.0 INR is 1.8 as of today and intravenous heparin has been started Coumadin will be increased to 10 mg daily INR is 3.5 today. Heparin is stopped We will change warfarin to 7.5 mg daily INR went up to 4.2 today, will hold Coumadin and start 5 mg from tomorrow INR 3.7 on 06/26/2019 Her home dose of Coumadin has been restarted COPD No signs of exacerbation Continue home inhalers Duo nebs as needed DVT Px: on Heparin drip Code Status Full Code Disposition Admit in Tele (2) Bacteremia: Noted to have a suspicious lesion in ARIAS: Her INR is more than 3 and it is very unlikely to be due to clot so other options remain possible vegetation No signs and/or symptoms of infection and/or endocarditis 1 out of 2 blood cultures was positive for gram-positive cocci in chain Discussed with Dr. Shanks Will get another set of blood culture and restart intravenous vancomycin Await for full identification and go from the May need ID consult Subjective 06/22/2019 The patient was seen and examined in telemetry unit She still complains to have some shortness of breath on minimal exertion She has had more swelling of the legs and about 5 pounds weight gain noted on admission Atrial fibrillation seems to be stable She feels that her diuretic has not been working 06/23/2019 Patient was seen and examined in telemetry unit She has been feeling a lot better since admission Denies any significant palpitation and no shortness of breath at rest Leg swelling has been improving 06/24/2019 Patient was seen and examined in telemetry unit She has been feeling a lot better but she has had 5 beat runs of V. tach yesterday Her breathing is better and leg swelling is improving too Patient was seen and examined in telemetry unit She complains to have minimal shortness of breath on exertion but no symptoms at rest Her edema has been improving No significant arrhythmias noted on monitor 06/26/2019 The patient was seen and examined in telemetry unit She denies any symptoms except shortness of breath on minimal exertion She is agreeable to go for elective cardioversion tomorrow 06/27/2019 The patient was seen and examined in telemetry unit She was noted to have a small clot in the heart and could not go for elective cardioversion Denies any symptoms as of today Will stay tonight and tomorrow she will be discharged 06/28/2019 The patient was seen and examined in telemetry unit She has been feeling better and almost about to go home She denies any symptoms as of today Very anxious and upset when she knew that she will not be going home today Review of Systems Review of Systems: All systems reviewed and are unremarkable except as noted below Respiratory: + dyspnea on exertion Physical Exam Physical Exam: Anxious without any apparent distress Constitutional: well developed, well nourished and + obese Eyes: PERRL, conjunctivae normal, anicteric sclerae ENMT: external ear and nose normal, oropharynx normal Neck: trachea midline, no thyromegaly Respiratory: + respiratory distress (Minimal shortness of breath at rest) Auscultation: + diminished lung sounds (Crackles at the right base) and + crackles (Minimal crackles at the bases) Cardiovascular: Rate/Rhythm: + abnormal rate and + abnormal rhythm Heart Sounds: + murmur Extremities: + edema (Bilateral leg edema about 1-2+) Gastrointestinal (Abdomen): Inspection/Auscultation: abdomen normal to inspection and normal bowel sounds Neurologic: PERRL, EOMI, accommodation nl, no face palsy, no dysarthria Lymphatic: no cervical or axillary lymphadenopathy Results & Data Vital Signs (Past 12 Hours) Vital Signs Temp Pulse Resp BP Pulse Ox 06/28/19 15:08 36.4 C L 93 H 16 122/62 94 06/28/19 12:28 36.7 C 95 H 18 135/85 95 06/28/19 08:00 36.8 C 100 H 20 118/63 98 Laboratory Results BMP 06/28/19 06:52 Sodium 144 Potassium 3.8 Chloride 105 Carbon Dioxide 35 H BUN 22 H Creatinine 0.91 Glucose 119 H Calcium 8.8 Medications Administered Current Inpatient Medications Acetaminophen (Tylenol) 650 mg PO Q4H PRN PRN Reason: Pain or Fever Stop: 07/21/19 21:58 Aspirin (Ecotrin Ectab) 81 mg PO DAILY LESLIE Stop: 07/22/19 08:59 Last Admin: 06/28/19 08:20 Dose: 81 mg Documented by: Atorvastatin Calcium (Lipitor) 40 mg PO DAILY LESLIE Stop: 07/22/19 08:59 Last Admin: 06/28/19 08:22 Dose: 40 mg Documented by: Digoxin (Lanoxin) 0.125 mg PO HS LESLIE Stop: 07/21/19 21:58 Last Admin: 06/27/19 19:55 Dose: 0.125 mg Documented by: Fluticasone/Umeclidinium/Vilanterol (Trelegy Ellipta 100-62.5-25) 1 ea INH DAILY LESLIE Stop: 07/23/19 08:59 Last Admin: 06/28/19 08:22 Dose: 1 ea Documented by: Furosemide (Lasix) 40 mg PO BID17 LESLIE Stop: 07/27/19 06:59 Last Admin: 06/28/19 08:20 Dose: 40 mg Documented by: Vancomycin HCl 1,000 mg/ (Sodium Chloride) 270 mls @ 125 mls/hr IV Q12H [facility] Stop: 07/13/19 01:59 Ipratropium [place] (Atrovent 0.02% 0.5mg/2.5ml) 0.5 mg INH Q6R PRN PRN Reason: Shortness Of Breath Or Wheezing Stop: 07/21/19 22:22 Last Admin: 06/23/19 22:52 Dose: 0.5 mg Documented by: Levalbuterol HCl (Xopenex 0.63 Mg/3 Ml Neb) 0.63 mg NEB Q6R PRN PRN Reason: Shortness Of Breath Or Wheezing Stop: 07/21/19 22:17 Last Admin: 06/23/19 22:52 Dose: 0.63 mg Documented by: Lisinopril (Zestril) 5 mg PO DAILY [facility] Stop: 07/21/19 21:58 Last Admin: 06/28/19 08:20 Dose: 5 mg Documented by: Metoprolol Succinate (Toprol Xl) 25 mg PO BID [facility] Stop: 07/25/19 12:59 Last Admin: 06/28/19 08:19 Dose: 25 mg Documented by: Miscellaneous Information (Consult) 1 ea N/A UD PRN PRN Reason: Consult Stop: 07/28/19 11:51 Nitroglycerin (Nitrostat) 0.4 mg SL UD PRN PRN Reason: Chest Pain Stop: 07/21/19 21:58 Polyethylene Glycol (Miralax Powder Packet) 17 gm PO DAILY PRN PRN Reason: Constipation Stop: 07/21/19 21:58 Sertraline HCl (Zoloft) 25 mg PO DAILY [facility] Stop: 07/22/19 08:59 Last Admin: 06/28/19 08:20 Dose: 25 mg Documented by: Sotalol HCl (Betapace) 80 mg PO DAILY [facility] Stop: 07/29/19 08:59 Sotalol HCl (Betapace) 40 mg PO PM [facility] Stop: 07/28/19 20:59 Warfarin Sodium (Coumadin) 5 mg PO DAILY@1600 [facility] Stop: 07/26/19 15:59 Last Admin: 06/27/19 15:51 Dose: 5 mg Documented by:
[2019-06-28] MEDS: WARFARIN SOD 5 MG TAB PO SCH (17:02)
[2019-06-28] MEDS: DIGOXIN 0.125 MG TAB PO SCH (20:16)
[2019-06-29] MEDS: VANCOMYCIN HCL 1,000 MG in SODIUM CHLORIDE 0.9% 250 ML IV SCH ×2 (02:31→14:24)
[2019-06-29 07:47] LABS: Basophils # (auto) 0.03 K/uL (0-0.2); Basophils % (auto) 0.3 %; Eosinophils # (auto) 0.17 K/uL (0-0.5); Hematocrit (blood only) 40.2 % (37-47); Hemoglobin 12.4 g/dL (12.0-16.0); Immature Granulocytes # (auto) 0.04 K/uL (0.00-0.02); Immature Granulocytes % (auto) 0.5 %; Lymphocytes # (auto) 1.78 K/uL (1.2-3.4); Lymphocytes % (auto) 20.6 %; Mean Corpuscular Hemoglobin 27.4 pg (25-34); Mean Corpuscular Hgb Conc 30.8 g/dL (32-36); Mean Corpuscular Volume 88.7 fL (80-100); Mean Platelet Volume 11.7 fL (7.4-10.4); Monocytes # (auto) 0.85 K/uL (0.11-0.59); Monocytes % (auto) 9.9 %; Neutrophils # (auto) 5.75 K/uL (1.4-6.5); Neutrophils % (auto) 66.7 %; Platelet Count 305 K/uL (130-400); RDW Standard Deviation 48.7 fL (36.4-46.3); Red Blood Count 4.53 M/uL (4.2-5.4); White Blood Count 8.62 K/uL (4.8-10.8)
[2019-06-29 07:57] LABS: Prothrombin Time 28.5 Seconds (9.0-12.0)
[2019-06-29 08:09] LABS: Albumin Globulin Ratio 0.8 (0.9-2); Albumin Level 2.9 gm/dl (3.4-5.0); BUN Creatinine Ratio 24.2 (10-20); Bilirubin,Total 0.5 mg/dl (0.2-1); Calcium 8.8 mg/dl (8.5-10.1); Creatinine Clr Calc Pharmacy 65.5 ml/min; Est GFR (African American) 81.6; Est GFR (Non-African American) 70.4; Globulin 3.5 gm/dl (2.5-4.0); Magnesium 1.8 mg/dl (1.8-2.4); Potassium 3.1 mmol/L (3.5-5.1); Total Protein 6.4 gm/dl (6.4-8.2)
[2019-06-29] MEDS: SOTALOL HCL 80 MG TAB PO SCH ×2 (08:32→20:54)
[2019-06-29] MEDS: METOPROLOL SUCC 25MG EXT REL TAB PO SCH ×2 (08:32→20:55)
[2019-06-29] MEDS: ATORVASTATIN 40 MG TAB PO SCH (08:32)
[2019-06-29] MEDS: SERTRALINE HCL 50 MG TABLET PO SCH (08:33)
[2019-06-29] MEDS: ASPIRIN 81 MG ECTAB PO SCH (08:33)
[2019-06-29] MEDS: FLUTICASONE/UMECLIDIN/VILANTER INH SCH (08:33)
[2019-06-29] MEDS: lisinopriL 5 MG TAB PO SCH (08:33)
[2019-06-29] MEDS: FUROSEMIDE 40 MG TAB PO SCH ×2 (08:33→16:29)
[2019-06-29] MEDS ORDERED: POTASSIUM CHLORIDE 20 MEQ TABCR PO ONE (09:08)
--- NOTE | 2019-06-29 11:43 | Electrocardiogram Report ---
Test Reason : Blood Pressure : / mmHG Vent. Rate : 102 BPM Atrial Rate : 000 BPM P-R Int : 000 ms QRS Dur : 084 ms QT Int : 364 ms P-R-T Axes : 000 -11 183 degrees QTc Int : 474 ms Atrial fibrillation with rapid ventricular response Poor R wave progression, consider anterior NJ vs. lead placement vs. LVH Diffuse Nonspecific ST and T wave abnormality Abnormal ECG When compared with ECG of 28-JUN-2019 10:25, No significant change was found Confirmed by Juan A Ramirez ([id number]) on 06/29/2019 11:43:19 AM Referred By: REFERRED SELF Confirmed By:Juan A Ramirez
--- NOTE | 2019-06-29 12:20 | Infectious Disease Consult ---
Date of Consultation June 29, 2019 Assessment & Plan (1) Endocarditis of prosthetic valve: continue vanco, add gent pending final culture results. repeat cultures. caridio following, will need prolonged IV abx, final recs based on cutlure results. suspect oral source. no signs of worsening failure but would have low thresh hold for transfer to [facility]. Will need picc line but not until blood cultures sterile, will repeat today. will follow. History of Present Illness Attending Physician: Rhys Montelongo MD pt admitted on 06/21 with sob and leg edema. was found to have chf, TTE done on 06/22 no veg noted. was found to be in afib with RVR, cardio following, treated and clinically improved. was to have cardioversion on 06/27 - thrombus on mechanical MV noted, blood cultures done on 06/27 - growing alpha strep, repeated on 06/28 - gpc chains 2/2 sets. now on vanco, tolerating well. ARIAS done 06/28 - mv veg vs thrombus noted. She denies any f/c. states still sob but improved. no cp, no cough, no marie. no abd pain , no n/v/d. family present during my exam. states she had dental work done in April, tooth pulled, this was complicated by continued pain. she did take amox prior to extraction, did have what mary b mackenziees was a 4 day course of amox after she had pain, she then needed referral to second dentist for additional work, unclear if additional abx given at that time. she had been doing well at home prior to admssion, valve done at [facility] in 2013. Allergies Allergy/AdvReac Type Severity Reaction Status Date / Time bupropion Allergy Mild . Verified 06/21/19 18:13 tromethamine Allergy Unknown . Verified 06/21/19 18:13 ketorolac AdvReac Severe CHF Verified 06/21/19 18:13 Home Medications Home Medications Medication Instructions Recorded Confirmed Type albuterol sulfate 2 puff INHALATION Q4 PRN 06/21/19 06/21/19 History amoxicillin 2,000 mg PO UD 06/21/19 06/21/19 History aspirin 81 mg PO DAILY 06/21/19 06/21/19 History atorvastatin 40 mg PO DAILY 06/21/19 06/21/19 History cyanocobalamin (vitamin B-12) 500 mcg PO DAILY 06/21/19 06/21/19 History [Vitamin B-12] digoxin 125 mcg PO HS 06/21/19 06/21/19 History tapulwymnpw-isrvbvmah-wlsvgaky 1 inh INHALATION DAILY 06/21/19 06/21/19 History [Trelegy Ellipta] furosemide 40 mg PO BID 06/21/19 06/21/19 History ipratropium-albuterol 3 ml INHALATION Q6H PRN 06/21/19 06/21/19 History lisinopril 5 mg PO DAILY 06/21/19 06/21/19 History metoprolol succinate 50 mg PO BID 06/21/19 06/21/19 History sertraline 25 mg PO DAILY 06/21/19 06/21/19 History warfarin 2.5 mg PO WK 06/21/19 06/21/19 History warfarin 5 mg PO [id number] 06/21/19 06/21/19 History Patient History Medical History A-fib CHF (congestive heart failure) (Acute) CONSTANCE (generalized anxiety disorder) Surgical History H/O mitral valve replacement mechanical Family History Father Heart disease Brother Heart disease Social History Preferred Language: German Communication Ability: Effective Beliefs That Will Affect Care: None Current Living Situation: Alone Other Information That Helps Us Care for You: No Feels Safe at Home: Yes Safety Concerns: Feels Safe At This Time Smoking Status: Former smoker Hx Alcohol Use: No Hx Substance Use: No Review of Systems Review of Systems: All systems reviewed & are unremarkable except as noted in HPI & below Physical Exam Constitutional: WD/WN, vitals as above Eyes: PERRL, conjunctivae normal, anicteric sclerae ENMT: external ear and nose normal, oropharynx normal Neck: normal visual inspection Respiratory: normal respiratory effort, lungs clear to auscultation Cardiovascular: Rate/Rhythm: + irregularly irregular Heart Sounds: + click and + murmur Extremities: no pedal edema Gastrointestinal (Abdomen): normal bowel sounds, soft, nontender, no hepatosplenomegaly Musculoskeletal: no cyanosis or clubbing, extremities motor strength 5/5 Skin: no rashes, warm and dry Psychiatric: A+Ox3, euthymic affect Results & Data Vital Signs (Past 12 Hours) Vital Signs Temp Pulse Resp BP Pulse Ox 06/29/19 07:08 36.8 C 111 H 18 124/73 91 06/29/19 02:43 36.8 C 120 H 22 122/81 92 Laboratory Results Microbiology 06/28/19 12:20 Blood Aerobic Blood Culture - Preliminary Gram positive cocci in chains 06/28/19 12:20 Blood Anaerobic Blood Culture - Preliminary Gram positive cocci in chains 06/27/19 10:49 Blood Aerobic Blood Culture - Preliminary Alpha strep not S.pne/enteroco 06/27/19 10:49 Blood Anaerobic Blood Culture - Preliminary No growth in Anaerobic bottle after 24 hours. 06/28/19 12:26 Blood Anaerobic Blood Culture - Preliminary Gram positive cocci in chains 06/27/19 11:00 Blood Aerobic Blood Culture - Preliminary No growth in Aerobic bottle after 24 hours. 06/27/19 11:00 Blood Anaerobic Blood Culture - Preliminary No growth in Anaerobic bottle after 24 hours. PG Care Time/CCT Total # of Minutes Spent Total Time Spent with Patient: Total time spent is greater than 50% in coordination of care (as documented) at patient's floor/unit and/or counseling patient:
[2019-06-29] MEDS ORDERED: GENTAMICIN CONSULT ACTIVE PRN (13:08)
[2019-06-29] MEDS: GENTAMICIN SULFATE IV SCH ×2 (13:19→20:53)
[2019-06-29] MEDS: DEXTROSE 5% IV SCH ×2 (13:19→20:53)
--- NOTE | 2019-06-29 13:38 | Cardiology Progress Note ---
Date of Service June 29, 2019 Assessment & Plan (1) Endocarditis of prosthetic valve: (2) Bacteremia: (3) Acute on chronic diastolic heart failure: (4) Atrial fibrillation with RVR: I had a long discussion with the patient regarding diagnosis of endocarditis. Transesophageal echocardiogram demonstrates normal functioning mechanical mitral valve prosthesis. No evidence of abscess or valve dehiscence. The images were technically limited, however, small vegetation visualized adherent to the Coumadin ridge. Continue broad spectrum antibiotic therapy pending culture and sensitivities. Appreciate infectious disease input. PICC line will be placed when blood cultures are sterile. She will require 6 weeks of intravenous antibiotic therapy. Continue sotalol 80 mg in a.m., 40 mg in the evening in addition to metoprolol 25 mg twice daily and low-dose digoxin in the evening. Continue warfarin dosing for goal INR of 2.5-3.5. INR today is therapeutic. Defer repeat cardioversion for minimum 4 weeks at this time. Subjective Patient seen and examined the bedside. Heart rate unchanged. No fever recorded overnight. Denies chills or Reiger's. Generally feeling well at this time. Denies palpitations, chest discomfort, unusual shortness of breath. No orthopnea, PND, or lower extremity edema. Reports history of tooth extraction approximately 1 month ago. Following the tooth extraction she reported jaw discomfort and swelling for nearly 1 week. She did not receive antibiotic therapy post tooth extraction however she was prophylaxed prior to the procedure. is present at bedside. He offers no other conc erns/complaints this time. Review of Systems Review of Systems: All systems reviewed & are unremarkable except as noted in HPI & below Physical Exam Constitutional: well developed and well nourished; no acute distress Respiratory: normal respiratory effort, lungs clear to auscultation Cardiovascular: Rate/Rhythm: + tachycardic and + irregularly irregular Heart Sounds: normal S1 and normal S2 Vessels: radial pulses present; no JVD and no carotid bruit Extremities: + pedal edema Gastrointestinal (Abdomen): Inspection/Auscultation: normal bowel sounds; abdomen not distended Percussion/Palpation: abdomen soft; abdomen nontender, no guarding and abdomen not rigid Results & Data Vital Signs (Past 12 Hours) Vital Signs Temp Pulse Resp BP Pulse Ox 06/29/19 12:00 36.5 C 87 16 118/72 93 06/29/19 07:08 36.8 C 111 H 18 124/73 91 06/29/19 02:43 36.8 C 120 H 22 122/81 92 (1) Endocarditis of prosthetic valve Encounter type: initial encounter Qualified Code(s): T82.6XXA - Infection and inflammatory reaction due to cardiac valve prosthesis, initial encounter; I38 - Endocarditis, valve unspecified
--- NOTE | 2019-06-29 14:02 | Pharmacy Report ---
Pharmacy Abx Dose Short Note - Date of Service June 29, 2019 - Assessment & Plan Assessment 69 year old F receiving vancomycin and now ordered gentamicin for treatment of infective endocarditis with prosthetic valve Day # 2 of antimicrobial therapy. ARIAS: mobile echodensity noted - thrombus vs. vegetation Blood cultures x 2 (06/28): gram positive cocci in chains x 2 Plan * Gentamicin 70 mg (1 mg/kg based on adjusted body weight) IV q8h for synergy dosing * Gentamicin trough ordered for tomorrow morning prior to 3rd dose to rule out accumulation of the drug Pharmacy will continue to follow and will adjust dose/frequency as necessary. Thank you.
--- NOTE | 2019-06-29 15:36 | Hospitalist Progress Note ---
Date of Service June 29, 2019 Assessment & Plan (1) Atrial fibrillation with RVR: History of paroxysmal atrial fibrillation H/O Mechanical MVR Continue Cardizem drip and discontinued on 06/23/19 rate controlled on Metoprolol 25mg BID and sotalol 80mg in am and 40mg PM cardiology on board S/P ARIAS showed mobile echodensity adherent to the Coumadin ridge of the left atrium might be due to thrombus versus vegetation Cardioversion canceled due to ARIAS finding Continue monitor closely Acute on chronic systolic and diastolic heart failure CXR:Congestive heart failure Received IV Lasix 40 mg while in ED IV Lasix 20mg BID starting then transition to oral lasix ECHO showed A. 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 pne/enteroco Blood cx on 06/28 positive for gram positive cocci in chains ID on board recommended to continue IV Vanco and genta Blood cx repeat today Will need IV abx for 6 weeks at least PICC line once blood cx negative Tobacco use Counseled on smoking cessation Refused nicotine patch CONSTANCE Depression Continue home medication Dyslipidemia on Statin H/O metallic mitral valve replacement INR 3 today Continue Coumadin Monitor PT/INR COPD No signs of exacerbation Continue home inhalers Duo nebs as needed DVT Px: On Coumadin with INR 3 Code Status Full Code Disposition Admit in Tele Subjective Pt was seen and examined Sitting in bed with no distress Pt said that she feels much better Pt said that her breathing improves Denies any chest pain, palpitation, dizziness and SOB Physical Exam Physical Exam: General- No acute distress Head- atraumatic Eyes- PERRL, EOMI, ENT- oropharynx clear Neck- supple, no JVD Lungs- clear to auscultation Heart- irregular rhythm Abdomen- normal bowel sounds, soft, nontender Extremities- no calf tenderness Neuro- alert, oriented x 3; PERRL, EOMI; no facial palsy; no dysarthria Skin- warm & dry Results & Data Vital Signs (Past 12 Hours) Vital Signs Temp Pulse Resp BP Pulse Ox 06/29/19 12:00 36.5 C 87 16 118/72 93 06/29/19 07:08 36.8 C 111 H 18 124/73 91
[2019-06-29] MEDS: WARFARIN SOD 5 MG TAB PO SCH (16:29)
[2019-06-29] MEDS: DIGOXIN 0.125 MG TAB PO SCH (20:53)
[2019-06-30] MEDS: VANCOMYCIN HCL 1,000 MG in SODIUM CHLORIDE 0.9% 250 ML IV SCH ×2 (02:20→13:55)
[2019-06-30] MEDS ORDERED: GENTAMICIN TROUGH 1 EA ONE (04:30)
[2019-06-30 04:59] LABS: INR 3.3 (0.9-1.1)
[2019-06-30 05:12] LABS: Creatinine Clr Calc Pharmacy 67.1 ml/min; Est GFR (Non-African American) 72.5
[2019-06-30] MEDS: DEXTROSE 5% IV SCH (05:13)
[2019-06-30] MEDS: GENTAMICIN SULFATE IV SCH (05:13)
[2019-06-30] MEDS: SERTRALINE HCL 50 MG TABLET PO SCH (08:02)
[2019-06-30] MEDS: lisinopriL 5 MG TAB PO SCH (08:02)
[2019-06-30] MEDS: ASPIRIN 81 MG ECTAB PO SCH (08:02)
[2019-06-30] MEDS: ATORVASTATIN 40 MG TAB PO SCH (08:02)
[2019-06-30] MEDS: METOPROLOL SUCC 25MG EXT REL TAB PO SCH ×2 (08:02→20:57)
[2019-06-30] MEDS: FUROSEMIDE 40 MG TAB PO SCH ×2 (08:02→15:58)
[2019-06-30] MEDS: SOTALOL HCL 80 MG TAB PO SCH ×2 (08:02→20:57)
[2019-06-30] MEDS: FLUTICASONE/UMECLIDIN/VILANTER INH SCH (08:03)
--- NOTE | 2019-06-30 10:04 | Infectious Disease Progress Nt ---
Date of Service June 30, 2019 Assessment & Plan (1) Endocarditis of prosthetic valve: continue vanco and gent pending final culture results. repeat cultures. pending caridio following, will need prolonged IV abx, final recs based on culture results. suspect oral source. no signs of worsening failure but would have low thresh hold for transfer to [facility]. Will need picc line but not until blood cultures sterile, will follow. Subjective pt seen in f/u, doing well. 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 tolerating abx. anxious to go home. 06/29 cultures pending. all previous cultures growing alpha strep, sensitivities pending at this time. Review of Systems Review of Systems: All systems reviewed & are unremarkable except as noted in HPI & below Physical Exam Constitutional: WD/WN, vitals as above Eyes: PERRL, conjunctivae normal, anicteric sclerae ENMT: external ear and nose normal, oropharynx normal Neck: normal visual inspection Respiratory: normal respiratory effort, lungs clear to auscultation Cardiovascular: Rate/Rhythm: + irregularly irregular Heart Sounds: + click and + murmur Extremities: no pedal edema Gastrointestinal (Abdomen): normal bowel sounds, soft, nontender, no hepatosplenomegaly Musculoskeletal: no cyanosis or clubbing, extremities motor strength 5/5 Skin: no rashes, warm and dry Psychiatric: A+Ox3, euthymic affect Results & Data Vital Signs (Past 12 Hours) Vital Signs Temp Pulse Pulse Resp BP Pulse Ox 06/30/19 07:11 36.4 C L 100 H 18 124/78 94 06/30/19 03:21 37.1 C 93 H 19 121/66 93 06/30/19 00:00 109 H 06/29/19 23:35 36.5 C 99 H 20 128/82 91 Laboratory Results Microbiology 06/28/19 12:20 Blood Aerobic Blood Culture - Preliminary Alpha strep 06/28/19 12:20 Blood Anaerobic Blood Culture - Preliminary Alpha strep 06/28/19 12:26 Blood Aerobic Blood Culture - Preliminary Alpha strep 06/28/19 12:26 Blood Anaerobic Blood Culture - Preliminary Gram positive cocci in chains 06/27/19 11:00 Blood Aerobic Blood Culture - Preliminary No growth in Aerobic bottle after 48 hours. 06/27/19 11:00 Blood Anaerobic Blood Culture - Preliminary No growth in Anaerobic bottle after 48 hours. 06/27/19 10:49 Blood Aerobic Blood Culture - Preliminary Alpha strep not S.pne/enteroco 06/27/19 10:49 Blood Anaerobic Blood Culture - Preliminary No growth in Anaerobic bottle after 48 hours. PG Care Time/CCT Total # of Minutes Spent Total Time Spent with Patient: Total time spent is greater than 50% in coordination of care (as documented) at patient's floor/unit and/or counseling patient: (1) Endocarditis of prosthetic valve Encounter type: initial encounter Qualified Code(s): T82.6XXA - Infection and inflammatory reaction due to cardiac valve prosthesis, initial encounter; I38 - Endocarditis, valve unspecified
[2019-06-30] MEDS ORDERED: VANCOMYCIN TROUGH ONE (13:30)
--- NOTE | 2019-06-30 14:21 | Cardiology Progress Note ---
Date of Service June 30, 2019 Assessment & Plan (1) Endocarditis of prosthetic valve: (2) Bacteremia: (3) Acute on chronic diastolic heart failure: Patient volume status improved. Continue oral diuretic therapy. (4) Atrial fibrillation with RVR: Continue broad spectrum antibiotic therapy pending final culture result with sensitivities. Appreciate infectious disease input. PICC line will be placed when blood cultures are sterile. She will require 6 weeks of intravenous antibiotic therapy. Continue sotalol 80 mg in a.m., 40 mg in the evening in addition to metoprolol 25 mg twice daily and low-dose digoxin in the evening. Continue warfarin dosing for goal INR of 2.5-3.5. INR today is therapeutic. Defer repeat cardioversion for minimum 4 weeks at this time. Subjective Patient seen and examined the bedside. Denies fever, chills, palpitations, or chest discomfort. Anxiously awaiting discharge. Repeat cultures performed 06/29 pending. Review of Systems Review of Systems: All systems reviewed & are unremarkable except as noted in HPI & below Physical Exam Constitutional: well developed and well nourished; no acute distress Respiratory: normal respiratory effort, lungs clear to auscultation Cardiovascular: Rate/Rhythm: + tachycardic and + irregularly irregular Heart Sounds: normal S1 and normal S2 Vessels: radial pulses present; no JVD and no carotid bruit Extremities: + pedal edema Gastrointestinal (Abdomen): Inspection/Auscultation: normal bowel sounds; abdomen not distended Percussion/Palpation: abdomen soft; abdomen nontender, no guarding and abdomen not rigid Results & Data Vital Signs (Past 12 Hours) Vital Signs Temp Pulse Resp BP Pulse Ox 06/30/19 11:09 36.5 C 98 H 18 124/67 94 06/30/19 07:11 36.4 C L 100 H 18 124/78 94 06/30/19 03:21 37.1 C 93 H 19 121/66 93 (1) Endocarditis of prosthetic valve Encounter type: initial encounter Qualified Code(s): T82.6XXA - Infection and inflammatory reaction due to cardiac valve prosthesis, initial encounter; I38 - Endocarditis, valve unspecified
--- NOTE | 2019-06-30 14:25 | Pharmacy Report ---
Pharmacy Abx Dose Short Note - Date of Service June 30, 2019 - Assessment & Plan Assessment 69 year old F receiving vancomycin and gentamicin for treatment of confirmed bacteremia/prosthetic valve infective endocarditis Day # 3 of antimicrobial therapy. Renal function stable - will continue to monitor given concomitant vancomycin and gentamicin Microbiology: Blood cultures (06/27): 1 of 2 positive - alpha strep Blood cultures (06/28) 2 of 2 positive - alpha strep (most likely viridans group Streptococci) Blood cultures (06/29): no growth at 24 hours Plan is to de-escalate based on cultures Plan Vanco * Trough level of 16.8 mcg/mL is therapeutic * Continue dose of 1000 mg IV every 12 hours * Goal trough level for infective endocarditis : 15 to 20 mcg/mL * Will order follow-up trough if vancomycin is to be continued following finalization of cultures Gentamicin * Trough above undetectable level (1.2), but will be adjusting dosing to 3 mg/kg once daily starting at 1500 today in light of updated culture data * 3 mg/kg once daily recommended for Streptococcal endocarditis * Will obtain gentamicin trough prior to tomorrow's dose - aiming for undetectable level Pharmacy will continue to follow and will adjust dose/frequency as necessary. Thank you.
[2019-06-30] MEDS ORDERED: DEXTROSE 5% IV SCH (15:00)
[2019-06-30] MEDS ORDERED: GENTAMICIN SULFATE IV SCH (15:00)
[2019-06-30] MEDS: WARFARIN SOD 5 MG TAB PO SCH (15:57)
--- NOTE | 2019-06-30 19:49 | Hospitalist Progress Note ---
Date of Service June 30, 2019 Assessment & Plan (1) Atrial fibrillation with RVR: History of paroxysmal atrial fibrillation H/O Mechanical MVR Continue Cardizem drip and discontinued on 06/23/19 rate controlled on Metoprolol 25mg BID and sotalol 80mg in am and 40mg PM cardiology on board S/P ARIAS showed mobile echodensity adherent to the Coumadin ridge of the left atrium might be due to thrombus versus vegetation Cardioversion canceled due to ARIAS finding Continue coumadin daily with INR 3.3 today (INR goal 2.5 to 3.5) cardioversion defer in 4 weeks Continue monitor closely Acute on chronic systolic and diastolic heart failure CXR:Congestive heart failure Received IV Lasix 40 mg while in ED IV Lasix 20mg BID starting then transition to oral lasix ECHO showed A. 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 pne/enteroco Blood cx on 06/28 positive for gram positive cocci in chains ID on board recommended to continue IV Vanco and genta Blood cx on 06/29 showed no growth so far Will need IV abx for 6 weeks at least PICC line once repeat blood cx on 06/29 negative Tobacco use Counseled on smoking cessation Refused nicotine patch CONSTANCE Depression Continue home medication Dyslipidemia on Statin H/O metallic mitral valve replacement INR 3 today Continue Coumadin Monitor PT/INR COPD No signs of exacerbation Continue home inhalers Duo nebs as needed DVT Px: On Coumadin with INR 3 Code Status Full Code Disposition Continue monitor in tele Subjective Pt was seen and examined. Sitting in bed with no distress Pt said that she did not sleep well last night due too much traffic in her room Denies any chest pain, palpitation, dizziness and SOB Physical Exam Physical Exam: General- No acute distress Head- atraumatic Eyes- PERRL, EOMI, ENT- oropharynx clear Neck- supple, no JVD Lungs- clear to auscultation Heart- irregular rhythm Abdomen- normal bowel sounds, soft, nontender Extremities- no calf tenderness Neuro- alert, oriented x 3; PERRL, EOMI; no facial palsy; no dysarthria Skin- warm & dry Results & Data Vital Signs (Past 12 Hours) Vital Signs Temp Pulse Pulse Resp BP BP Pulse Ox 06/30/19 19:06 36.7 C 94 H 18 136/74 94 06/30/19 15:40 36.5 C 91 H 18 118/74 94 06/30/19 11:09 36.5 C 98 H 18 124/67 94
[2019-06-30] MEDS: DIGOXIN 0.125 MG TAB PO SCH (20:57)
[2019-07-01] MEDS: VANCOMYCIN HCL 1,000 MG in SODIUM CHLORIDE 0.9% 250 ML IV SCH (02:26)
[2019-07-01 07:58] LABS: INR 3.3 (0.9-1.1); Prothrombin Time 31.3 Seconds (9.0-12.0)
[2019-07-01] MEDS: SOTALOL HCL 80 MG TAB PO SCH (08:05)
[2019-07-01] MEDS: FUROSEMIDE 40 MG TAB PO SCH (08:06)
[2019-07-01] MEDS: ASPIRIN 81 MG ECTAB PO SCH (08:06)
[2019-07-01] MEDS: ATORVASTATIN 40 MG TAB PO SCH (08:07)
[2019-07-01] MEDS: FLUTICASONE/UMECLIDIN/VILANTER INH SCH (08:08)
[2019-07-01] MEDS: METOPROLOL SUCC 25MG EXT REL TAB PO SCH (08:08)
[2019-07-01] MEDS: lisinopriL 5 MG TAB PO SCH (08:09)
[2019-07-01] MEDS: SERTRALINE HCL 50 MG TABLET PO SCH (08:09)
[2019-07-01 08:14] LABS: Creatinine Clr Calc Pharmacy 64.2 ml/min; Est GFR (African American) 79.3; Est GFR (Non-African American) 68.5
--- NOTE | 2019-07-01 10:02 | Infectious Disease Progress Nt ---
Date of Service July 01, 2019 Assessment & Plan (1) Endocarditis of prosthetic valve: will change to Rocephin 2g IV daily, will need 6 weeks IV abx, will need weekly cbc, cmp, esr while on abx. will need repeat echo in 5-6 weeks to assess for resolution. Due to I amp/pcn isolate, would suggest alternative antibiotic prior to upcoming dental work/procedures, etc. zyovx, cefdinir. 06/29 cultures negative, ok for picc line. will change abx today. OK for d/c from ID standpoint when home IV abx in place. will plan to follow post d/c. Subjective pt blood cultures 06/27 and 06/28 growing S. mitis, likely oral source due to recent dental work, I to amp and pcn. did take amox toni procedure. 06/29 blood cultures negative. afebrile, tolerating abx. Results & Data Vital Signs (Past 12 Hours) Vital Signs Temp Pulse Pulse Resp BP BP Pulse Ox 07/01/19 09:40 93 H 07/01/19 07:07 36.8 C 97 H 19 132/74 93 07/01/19 04:54 36.9 C 97 H 19 129/76 92 07/01/19 01:55 94 H 07/01/19 00:20 36.7 C 95 H 18 132/66 92 Laboratory Results Microbiology 06/28/19 12:20 Blood Aerobic Blood Culture - Final Streptococcus mitis/oralis 06/28/19 12:20 Blood Anaerobic Blood Culture - Final Streptococcus mitis/oralis 06/28/19 12:26 Blood Aerobic Blood Culture - Final Streptococcus mitis/oralis 06/28/19 12:26 Blood Anaerobic Blood Culture - Final Streptococcus mitis/oralis 06/27/19 10:49 Blood Aerobic Blood Culture - Preliminary Streptococcus mitis/oralis 06/27/19 10:49 Blood Anaerobic Blood Culture - Preliminary No growth in Anaerobic bottle after 48 hours. 06/29/19 12:56 Blood Aerobic Blood Culture - Preliminary No growth in Aerobic bottle after 24 hours. 06/29/19 12:56 Blood Anaerobic Blood Culture - Preliminary No growth in Anaerobic bottle after 24 hours. 06/29/19 13:11 Blood Aerobic Blood Culture - Preliminary No growth in Aerobic bottle after 24 hours. 06/29/19 13:11 Blood Anaerobic Blood Culture - Preliminary No growth in Anaerobic bottle after 24 hours. 06/27/19 11:00 Blood Aerobic Blood Culture - Preliminary No growth in Aerobic bottle after 48 hours. 06/27/19 11:00 Blood Anaerobic Blood Culture - Preliminary No growth in Anaerobic bottle after 48 hours. PG Care Time/CCT Total # of Minutes Spent Total Time Spent with Patient: Total time spent is greater than 50% in coordination of care (as documented) at patient's floor/unit and/or counseling patient: (1) Endocarditis of prosthetic valve Encounter type: initial encounter Qualified Code(s): T82.6XXA - Infection and inflammatory reaction due to cardiac valve prosthesis, initial encounter; I38 - Endocarditis, valve unspecified
[2019-07-01] MEDS ORDERED: cefTRIAXone SODIUM 2,000 MG in DEXTROSE 5% 50 ML IV SCH (10:30)
[2019-07-01] MEDS ORDERED: GENTAMICIN TROUGH SCH (14:30)
--- NOTE | 2019-07-01 15:32 | Hospitalist Progress Note ---
Date of Service July 01, 2019 Assessment & Plan (1) Atrial fibrillation with RVR: History of paroxysmal atrial fibrillation H/O Mechanical MVR Continue Cardizem drip and discontinued on 06/23/19 rate controlled on Metoprolol 25mg BID and sotalol 80mg in am and 40mg PM cardiology on board S/P ARIAS showed mobile echodensity adherent to the Coumadin ridge of the left atrium might be due to thrombus versus vegetation Cardioversion canceled due to ARIAS finding Continue coumadin daily with INR 3.3 today (INR goal 2.5 to 3.5) cardioversion defer in 4 weeks Continue monitor closely Acute on chronic systolic and diastolic heart failure CXR:Congestive heart failure Received IV Lasix 40 mg while in ED IV Lasix 20mg BID starting then transition to oral lasix ECHO showed A. 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 pne/enteroco Blood cx on 06/28 positive for gram positive cocci in chains On IV Vanco and genta Blood cx on 06/29 showed no growth so far case discussed with ID recommended to change IV vanco to Rocephin IV 2g Will d/c gentamycin on discharge Will need IV abx for 6 weeks at least Will need repeat ECHO in 5-6 weeks to check for resolution Will place PiCC line today will need weekly cbc, cmp, esr while on abx. Case management awared and said that ok to discharge her Case management will contact patient tomorrow and follow up with [facility] about when Rocephin will be delivered Tobacco use Counseled on smoking cessation Refused nicotine patch CONSTANCE Depression Continue home medication Dyslipidemia on Statin H/O metallic mitral valve replacement INR 3 today Continue Coumadin Monitor PT/INR COPD No signs of exacerbation Continue home inhalers Duo nebs as needed DVT Px: On Coumadin with INR 3.3 Code Status Full Code Disposition Discharge home today Subjective Pt was seen and examined Lying in bed with no distress Pt said that she feels fine She is very anxious to leave today She said that she would not spend another night in the hospital Denies any chest pain, palpitation and sob Physical Exam Physical Exam: General- No acute distress Head- atraumatic Eyes- PERRL, EOMI, ENT- oropharynx clear Neck- supple, no JVD Lungs- clear to auscultation Heart- irregular rhythm Abdomen- normal bowel sounds, soft, nontender Extremities- no calf tenderness Neuro- alert, oriented x 3; PERRL, EOMI; no facial palsy; no dysarthria Skin- warm & dry Results & Data Vital Signs (Past 12 Hours) Vital Signs Temp Pulse Pulse Resp BP BP Pulse Ox 07/01/19 15:20 36.7 C 107 H 18 144/79 H 92 07/01/19 11:36 36.7 C 106 H 18 119/78 94 07/01/19 09:40 93 H 07/01/19 07:07 36.8 C 97 H 19 132/74 93 07/01/19 04:54 36.9 C 97 H 19 129/76 92
--- NOTE | 2019-07-01 15:39 | Pharmacy Report ---
Pharmacy Abx Dose Short Note - Date of Service July 01, 2019 - Assessment & Plan Assessment 69 year old F receiving gentamicin and vancomycin for treatment of prosthetic valve infective endocarditis Day # 4 of antimicrobial therapy. Microbiology: Blood cultures (06/27): 1 of 2 positive - Streptococcus mitis/oralis (PCN DAYDAY: 0.25) Blood cultures (06/28) 2 of 2 positive - Streptococcus mitis/oralis (PCN DAYDAY: 0.25) Blood cultures (06/29): no growth at 24 hours Plan Vancomycin discontinued in light of updated cultures. Replaced with ceftriaxone 2 g IV q24h. Gentamicin trough resulted as 0.4 mcg/mL - trough acceptable (< 1 mcg/mL) Gentamicin peak levels not required for synergy dosing of gentamicin Will continue to follow renal function. Patient will require long-term IV antibiotics. Pharmacy will continue to follow and will adjust dose/frequency as necessary. Thank you.
[2019-07-01] MEDS ORDERED: GENTAMICIN SULFATE IV SCH (16:00)
[2019-07-01] MEDS ORDERED: DEXTROSE 5% IV SCH (16:00)
--- NOTE | 2019-07-01 16:17 | Cardiology Progress Note ---
Date of Service July 01, 2019 Assessment & Plan (1) Endocarditis of prosthetic valve: (2) Bacteremia: (3) Acute on chronic diastolic heart failure: Patient volume status improved. Continue oral diuretic therapy. (4) Atrial fibrillation with RVR: Narrow antibiotic spectrum as per infectious disease recommendations. Patient awaiting PICC line at this time. She will require 6 weeks of intravenous antibiotic therapy. Continue sotalol 80 mg in a.m., 40 mg in the evening in addition to metoprolol 25 mg twice daily and low-dose digoxin in the evening. Continue warfarin dosing for goal INR of 2.5-3.5. INR today is therapeutic. Defer repeat cardioversion for minimum 4 weeks at this time. Outpatient cardiology follow-up in 2 weeks. Subjective Patient seen and examined the bedside. No fever or chills overnight. Heart rate remains borderline elevated. Requesting discharge. Reports significant frustration regarding her prolonged hospital course. Repeat blood cultures performed 06/29/2019 with no growth x48 hours. She is awaiting PICC line placement. Review of Systems Review of Systems: All systems reviewed & are unremarkable except as noted in HPI & below Physical Exam Constitutional: well developed and well nourished; no acute distress Respiratory: normal respiratory effort, lungs clear to auscultation Cardiovascular: Rate/Rhythm: + tachycardic and + irregularly irregular Heart Sounds: normal S1 and normal S2 Vessels: radial pulses present; no JVD and no carotid bruit Extremities: + pedal edema Gastrointestinal (Abdomen): Inspection/Auscultation: normal bowel sounds; abdomen not distended Percussion/Palpation: abdomen soft; abdomen nontender, no guarding and abdomen not rigid Results & Data Vital Signs (Past 12 Hours) Vital Signs Temp Pulse Pulse Resp BP BP Pulse Ox 07/01/19 15:20 36.7 C 107 H 18 144/79 H 92 07/01/19 11:36 36.7 C 106 H 18 119/78 94 07/01/19 09:40 93 H 07/01/19 07:07 36.8 C 97 H 19 132/74 93 07/01/19 04:54 36.9 C 97 H 19 129/76 92 (1) Endocarditis of prosthetic valve Encounter type: initial encounter Qualified Code(s): T82.6XXA - Infection and inflammatory reaction due to cardiac valve prosthesis, initial encounter; I38 - Endocarditis, valve unspecified
--- NOTE | 2019-07-01 17:10 | XRay Report ---
XR chest 1V portable CLINICAL HISTORY: 69 years-old Female presenting with PICC placement. TECHNIQUE: Portable upright AP view of the chest was obtained. COMPARISON: 06/21/2019. FINDINGS: Left upper extremity PICC terminates in the lower SVC. Median sternotomy wires and prosthetic aortic valve noted. Atherosclerosis of the aortic arch. Cardiac silhouette enlarged. Pulmonary vascular prom inence similar to prior. Small right pleural effusion. Minimal right basilar opacities. The minimal b andlike opacity in the left mid lung. These opacities are unchanged. No pneumothorax. Osseous structu res normal. External leads project over the right upper quadrant. IMPRESSION: 1. Persistent small right pleural effusion with associated right basilar atelectasis, unchanged. 2. Cardiomegaly with mild volume overload. This is similar to prior. 3. Left mid lung scarring or atelectasis. ACT 112: Negative or not required by law. Electronically signed by: Eddie Griffith M.D. 07/01/2019 5:09 PM
--- NOTE | 2019-07-02 08:28 | Discharge Summary ---
Date of Service July 01, 2019 Admission HPI Per Admitting Provider Patient is a 69-year-old female with history of paroxysmal atrial fibrillation on chronic anticoagulation with Coumadin, ongoing tobacco use disorder, CONSTANCE, dyslipidemia, H/O metallic mitral valve replacement, depression, COPD, hypertensive heart disease, CHF and other problems presents with history of worsening shortness of breath, weight gain, bilateral lower extremity edema, and orthopnea. Patient states having worsening shortness of breath since last few weeks which is gradually progressed especially since last 2 days. Patient has been having difficulty sleeping secondary to severe orthopnea. She states having nausea, vomiting since 2 days and did not take her home medications. She was evaluated in cardiology clinic today and EKG suggestive of A. fib RVR with heart rate in 170s. Patient was sent to ED for further evaluation and management. She denies any history of chest pain, palpitations, abdominal pain, diarrhea, wheezing, cough. She gained about 5 to 8 pounds from baseline and noticed right lower extremity swelling greater than left lower extremity. She started on IV Cardizem drip while in ED. Also denies any history of dizziness, diaphoresis, hemoptysis, fever, chills, fall, headache, change in vision, dysuria, hematuria, sick contact, recent change in medications. Admission Exam Per Admitting Provider Physical Exam: Vitals signs as noted above General Appearance:Moderately built and nourished, no apparent distress Head: normocephalic, Atraumatic Eyes: normal inspection, EOMI Neck: supple, Trachea midline Respiratory/Chest: Normal breath sounds, + Basal Rales, No accessory muscle use Cardiovascular: Irregularly irregular, tachycardia, + murmur Abdomen/GI:Soft, Non tender, Bowel sounds present Extremities/Musculoskelatal:normal inspection, B/L LE edema Neurologic/Psych:AAOX3, grossly no focal neurological deficits Skin: normal color, warm Principal Diagnosis Atrial fibrillation with RVR Acute on chronic systolic and diastolic heart failure Hypertensive Urgency Bacteremia 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 Verified 06/21/19 18:13 tromethamine Allergy Unknown . Verified 06/21/19 18:13 ketorolac AdvReac Severe CHF Verified 06/21/19 18:13 Consultations 06/21/19 17:36 ED Decision to Admit Stat 06/21/19 21:59 Consult Cardiology Routine Consult Case Management - Discharge Planning Routine 06/26/19 10:58 Consult Anesthesiology Routine 06/26/19 10:59 Consult Anesthesiology Routine 06/29/19 11:29 Consult Infectious Diseases Routine Procedures Performed Operation Date: 06/27/19 07:45 Actual Procedures s Echo Color Flow - Kevyn Marques DO p Echo Transesophageal - Kevyn Marques, s Echo Doppler Complete - Kevyn Marques DO Ordered Studies 06/21/19 21:59 US venous doppler LE BI Urgent XR chest 1V portable CLINICAL HISTORY: weakness dyspnea COMPARISON STUDY: No previous studies for comparison. FINDINGS: Moderate cardiomegaly. Prior median sternotomy and valve replacement. Components of congestive heart failure. Small right effusion. IMPRESSION: Congestive heart failure ACT 112: Negative or not required by law. The above report was generated using voice recognition software. It may contain grammatical, syntax or spelling errors. Electronically signed by: Jemal Rojas M.D. 06/21/2019 5:10 PM Dictated: 06/21/191708 Transcribed: 06/21/191708 BILATERAL LOWER EXTREMITY VENOUS DOPPLER CLINICAL HISTORY: Bilateral lower extremity swelling. COMPARISON STUDY: No previous studies for comparison. TECHNIQUE: Sonography of the deep venous system of the bilateral lower extremities was performed. Compression and augmentation were evaluated. FINDINGS: The bilateral common femoral, superficial femoral and popliteal veins were compressible. Augmentation was normal. Flow was shown within the deep calf vessels. IMPRESSION: No evidence of deep venous thrombus within the bilateral lower extremities. ACT 112: Negative or not required by law. Electronically signed by: Ciro Marmolejo M.D. 06/22/2019 6:38 AM Dictated: [birth year]/1938 Transcribed: 06/22/19637 XR chest 1V portable CLINICAL HISTORY: 69 years-old Female presenting with PICC placement. TECHNIQUE: Portable upright AP view of the chest was obtained. COMPARISON: 06/21/2019. FINDINGS: Left upper extremity PICC terminates in the lower SVC. Median sternotomy wires and prosthetic aortic valve noted. Atherosclerosis of the aortic arch. Cardiac silhouette enlarged. Pulmonary vascular prominence similar to prior. Small right pleural effusion. Minimal right basilar opacities. The minimal bandlike opacity in the left mid lung. These opacities are unchanged. No pneumothorax. Osseous structures normal. External leads project over the right upper quadrant. IMPRESSION: 1. Persistent small right pleural effusion with associated right basilar atelectasis, unchanged. 2. Cardiomegaly with mild volume overload. This is similar to prior. 3. Left mid lung scarring or atelectasis. ACT 112: Negative or not required by law. Electronically signed by: Eddie Griffith M.D. 07/01/2019 5:09 PM Dictated: 07/01/191703 Transcribed: 07/01/191703 Hospital Course (1) Atrial fibrillation with RVR: History of paroxysmal atrial fibrillation H/O Mechanical MVR Continue Cardizem drip and discontinued on 06/23/19 rate controlled on Metoprolol 25mg BID and sotalol 80mg in am and 40mg PM cardiology on board S/P ARIAS showed mobile echodensity adherent to the Coumadin ridge of the left atrium might be due to thrombus versus vegetation Cardioversion canceled due to ARIAS finding Continue coumadin daily with INR 3.3 today (INR goal 2.5 to 3.5) cardioversion defer in 4 weeks Continue monitor closely Acute on chronic systolic and diastolic heart failure CXR:Congestive heart failure Received IV Lasix 40 mg while in ED IV Lasix 20mg BID starting then transition to oral lasix ECHO showed A. 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 pne/enteroco Blood cx on 06/28 positive for gram positive cocci in chains On IV Vanco and genta Blood cx on 06/29 showed no growth so far case discussed with ID recommended to change IV vanco to Rocephin IV 2g Will d/c gentamycin on discharge Will need IV abx for 6 weeks at least Will need repeat ECHO in 5-6 weeks to check for resolution Will place PiCC line today will need weekly cbc, cmp, esr while on abx. Case management awared and said that ok to discharge her Case management will contact patient tomorrow and follow up with V[facility] about when Rocephin will be delivered Tobacco use Counseled on smoking cessation Refused nicotine patch CONSTANCE Depression Continue home medication Dyslipidemia on Statin H/O metallic mitral valve replacement INR 3 today Continue Coumadin Monitor PT/INR COPD No signs of exacerbation Continue home inhalers Duo nebs as needed DVT Px: On Coumadin with INR 3.3 Code Status Full Code Disposition Discharge home today Total Time Total Time Spent Total Time Spent (In Minutes): 35 minutes Total Time Includes: Examination of the Patient, Discharge Planning, Medication Reconciliation, Communication With Other Providers and Other Discharge Plan Discharge Items Patient Disposition: Home - Home Health Services Reason For Visit: AFIB RVR Discharge Diagnosis: Atrial fibrillation with RVR Acute on chronic systolic and diastolic heart failure Hypertensive Urgency Bacteremia 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 Moulton on 07/07 @ 10:45 AM Follow up with your cardiology (Please call to schedule for the follow up appointment) Continue antibiotic infusion with Rocephin to complete 6 weeks course Your physician or your cardiology will order repeat ECHO once completes course of antibiotic Your physician will check cbc, cmp, esr weekly while on antibiotic monitor PT/INR with the coumadin clinic Counseling on smoking cessation Metoprolol decreased to 25mg twice a day Case management will contact you in the morning about when the antibiotic will be delivered Pending Studies at Discharge: Yes Studies:: Final blood culture result on 06/29/19 Stand-Alone Forms: My [facility] [employer], Smoking Cessation Medications and DC Order Prescriptions: New ceftriaxone 2 gram recon soln 2 gm IV DAILY 42 Days Qty: 42 RF: 0 sotalol 80 mg Tablet 40 mg PO PM 30 Days Qty: 15 RF: 0 sotalol 80 mg Tablet 80 mg PO DAILY 30 Days Qty: 30 RF: 0 metoprolol succinate 25 mg Tablet Extended Release 24 Hr 25 mg PO BID 30 Days Qty: 60 RF: 0 Continued amoxicillin 500 mg capsule 2,000 mg PO UD RF: 0 furosemide 40 mg tablet 40 mg PO BID RF: 0 atorvastatin 40 mg tablet 40 mg PO DAILY RF: 0 ipratropium-albuterol 0.5 mg-3 mg(2.5 mg base)/3 mL Solution For Nebulization 3 ml INHALATION Q6H PRN (Reason: Shortness Of Breath Or Wheezing) RF: 0 aspirin 81 mg Tablet,Delayed Release (Dr/Ec) 81 mg PO DAILY RF: 0 cyanocobalamin (vitamin B-12) [Vitamin B-12] 500 mcg Tablet 500 mcg PO DAILY RF: 0 warfarin 5 mg tablet 2.5 mg PO WK RF: 0 warfarin 5 mg tablet 5 mg PO 6XWK RF: 0 sertraline 25 mg tablet 25 mg PO DAILY RF: 0 lisinopril 5 mg tablet 5 mg PO DAILY RF: 0 digoxin 125 mcg (0.125 mg) tablet 125 mcg PO HS RF: 0 albuterol sulfate 90 mcg/actuation HFA aerosol inhaler 2 puff INHALATION Q4 PRN (Reason: Shortness Of Breath Or Wheezing) RF: 0 Trelegy Ellipta 100-62.5-25 mcg blister with device 1 inh INHALATION DAILY RF: 0 Discontinued metoprolol succinate 50 mg tablet extended release 24 hr 50 mg PO BID RF: 0 Discharge Orders: Discharge Order (Routine); Ordered 07/01/19 Ordered By: Rhys Short/Other Patient Handouts: Foods Heart Healthy Admission Data Admit Date/Time: 06/21/19 18:41 Attending Provider: Rhys Montelongo Admit Provider: Marv Man Primary Care Provider: Rosey Power Other Providers: Marv Man ; Jose Cruz Steinberg ; Babita Solis ; James Leonardo ; Magalys Leonardo ; Prince Gonzalez ; Constanza Doyle ; Shawn Jimenez ; Rochelle Sullivan ; Mandeep Sullivan V ; Ainsley Callejas ; Hiwot Wilson ; Catherine Miller ; Babita Parsons ; Ruperto Bland ; Luis Eduardo Denson ; Kenia Silveira ; Salazar Silveira ; Sharon Sierra ; Martín Dhaliwal. ; Kell aMrquez ; Jessica Umana ; Cookie Sweeney. ; Raven Darnell ; Tigre Menjivar ; Ramiro Conroy ; Bailee Garcia ; Jerri Zaman ; Keren Westbrook ; Hiro Brice ; Jose Cruz Delacruz ; Cortes Cabral ; Lebron Cabral ; Thierno Marquez ; Jose Cruz Churchill ; Latha Irwin ; Cornelio Hodge ; Sal Ochoa ; Mandeep Hutchins ; Dmitriy Kelsey ; Allegra Benavides. ; Sury Harris ; Ainsley Kebede ; Farida Glover ; Jemal Glover ; Luis Eduardo Kline ; Chey Kemp ; Bhavesh Hernandez ; Fay Bagley ; Efe Jamison ; Chey James ; Pam Restrepo ; Remi Rees ; Graciela Blackwell ; Tiana Crystal ; Brandon Dennis. ; Kell Ruiz ; [facility] Other Interventions: Discharge Summary Assessment (RN) Last Done: 07/01/19 18:02 [place] Date/Time DO NOT enter until pt leaves facility: 07/01/19 18:39
== END 2019-07-01 18:39 | disposition home health service (06) | DRG 308 ==
LOC: ED 16:17 → 2S 18:41 → SUATTDRO 18:41 → 2S 21:28